=== PATIENT | female | born 1990 | race African-American/Black ===

== ENCOUNTER 2016-07-10 11:31 | Emergency (ER) | payer OTHER ==
[2016-07-07 15:00] VITALS: BP 143/92
[~2016-07-10 11:31] MED LIST: AMLO10TA2 PO; AMOX1TAB61 PO; HYDR12.53 PO; LABE100T3 PO
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
[2016-07-10 12:53] LABS: BASO # 0.1 x10^3/uL (0.0-0.2); BASO % 1 % (0-3); EOS % 1 % (0-3); HEMATOCRIT 39.1 % (36.0-47.0); HEMOGLOBIN 12.9 g/dL (12.0-15.5); LYMPH # 2.3 x10^3/uL (1.0-4.8); LYMPH % 33 % (24-48); MEAN CORPUSCULAR HEMOGLOBIN 29 pg (25-35); MEAN CORPUSCULAR HGB CONC 33 g/dL (31-37); MEAN CORPUSCULAR VOLUME 89 fL (79-100); MONO % 5 % (0-9); NEUT % 60 % (31-73); PLATELET COUNT 223 x10^3/uL (140-400); WHITE BLOOD COUNT 6.9 x10^3/uL (4.0-11.0)
[2016-07-10 12:59] LABS: BILIRUBIN,URINE NEGATIVE (NEG); GLUCOSE,URINE NEGATIVE (NEG); NITRITE,URINE NEGATIVE (NEG); PH,URINE 6.5; PROTEIN,URINE NEGATIVE (NEG-TRACE); UROBILINOGEN,URINE 0.2 mg/dL (0.2 mg/dL)
[2016-07-10 13:03] LABS: BARBITURATES NEG (NEG); BENZODIAZEPINES POS (NEG); CANNABINOIDS NEG (NEG); COCAINE POS (NEG); METHADONE NEG (NEG); OPIATES NEG (NEG); PHENCYCLIDINE POS (NEG)
[2016-07-10 13:09] LABS: NEG OBC UR NEG; POS OBC UR POS
[2016-07-10 13:11] LABS: ALBUMIN 3.3 g/dL (3.4-5.0); ALBUMIN/GLOBULIN RATIO 0.8 (1.0-1.7); CALCIUM 8.6 mg/dL (8.5-10.1); CREATININE 0.7 mg/dL (0.6-1.0); GFR 120.6; TOTAL BILIRUBIN 0.2 mg/dL (0.2-1.0); TOTAL PROTEIN 7.2 g/dL (6.4-8.2)
[2016-07-10] MEDS ORDERED: IV NORMAL SALINE 1000ML BAG 1,000 ML IV ONE (13:15)
[2016-07-10 13:27] LABS: BACTERIA,URINE 0 /HPF (0-FEW); SQUAMOUS EPITHELIAL CELL,UR MANY /LPF; WBC,URINE 0 /HPF (0-4)
[2016-07-10] MEDS: POTASSIUM CHLORIDE 20 MEQ TABLET.ER. PO ONE (14:36)
== END 2016-07-10 14:30 | disposition home or self-care (01) ==
LOC: ER 11:31
DX: O99.341 Other mental disorders complicating pregnancy, first trimester (principal); F14.10 Cocaine abuse, uncomplicated; F19.10 Other psychoactive substance abuse, uncomplicated; I10 Essential (primary) hypertension; E87.6 Hypokalemia
CPT/HCPCS: 36415; 80053; 80305; 80320; 81001; 81025; 83690; 85027; G0480; G0481; 99284-25

== ENCOUNTER 2016-08-09 09:25 | Inpatient (IN) | payer SELFPAY ==
[~2016-08-09] VITALS: Ht 175.3 cm; Wt 91.2 kg
[2016-08-09] VITALS (7 sets, daily range): BP systolic 153–185; BP diastolic 81–115
[2016-08-09 10:00] LABS: BASO # 0.1 x10^3/uL (0.0-0.2); BASO % 1 % (0-3); EOS % 1 % (0-3); HEMATOCRIT 37.9 % (36.0-47.0); HEMOGLOBIN 12.4 g/dL (12.0-15.5); LYMPH # 2.6 x10^3/uL (1.0-4.8); LYMPH % 24 % (24-48); MEAN CORPUSCULAR HEMOGLOBIN 29 pg (25-35); MEAN CORPUSCULAR HGB CONC 33 g/dL (31-37); MEAN CORPUSCULAR VOLUME 88 fL (79-100); MONO % 5 % (0-9); NEUT % 70 % (31-73); PLATELET COUNT 217 x10^3/uL (140-400); RED CELL DISTRIBUTION WIDTH 13.7 % (11.5-14.5); WHITE BLOOD COUNT 11.2 x10^3/uL (4.0-11.0)
[2016-08-09] MEDS ORDERED: METOCLOPRAMIDE HCL 10 MG/2 ML VIAL. IV ONE (10:00)
[2016-08-09] MEDS ORDERED: LABETALOL 20 MG/4 ML DISP.SYRIN. IVP ONE ×2 (10:00→12:45)
[2016-08-09 10:03] LABS: CALCIUM 8.5 mg/dL (8.5-10.1); CREATININE 0.6 mg/dL (0.6-1.0); POTASSIUM 3.6 mmol/L (3.5-5.1)
[2016-08-09] MEDS: fentaNYL PF VIAL 100 MCG/2 ML VIAL IV PRN ×3 (10:03→16:57)
[2016-08-09 10:11] LABS: ALBUMIN 3.1 g/dL (3.4-5.0); ALBUMIN/GLOBULIN RATIO 0.8 (1.0-1.7); TOTAL BILIRUBIN 0.1 mg/dL (0.2-1.0); TOTAL PROTEIN 6.8 g/dL (6.4-8.2)
[2016-08-09 10:22] LABS: PROTHROMBIN TIME PATIENT 12.7 SEC (11.7-14.0)
[2016-08-09 10:44] LABS: BILIRUBIN,URINE NEGATIVE (NEG); GLUCOSE,URINE NEGATIVE (NEG); NITRITE,URINE NEGATIVE (NEG); PH,URINE 7.5; PROTEIN,URINE NEGATIVE (NEG-TRACE); UROBILINOGEN,URINE 0.2 mg/dL (0.2 mg/dL)
[2016-08-09 10:56] LABS: BACTERIA,URINE 0 /HPF (0-FEW); RBC,URINE 0 /HPF (0-2); WBC,URINE 0 /HPF (0-4)
--- NOTE | 2016-08-09 11:20 | RAD ---
EXAM: CT head without contrast. HISTORY: Severe headache, hypertension. TECHNIQUE: Computed tomography of the head was performed without intravenous contrast. The patient was shielded given . COMPARISON: 08/01/2014. FINDINGS: There is no intracranial hemorrhage. Cantor-white differentiation is preserved. The ventricles are normal in size and position. There is a small air-fluid level in the right maxillary sinus. There is mucosal thickening in the right greater than left ethmoid air cells. The orbits are unremarkable. The temporal bones are unremarkable. The calvarium reveals no suspicious lesions. IMPRESSION: 1. No acute intracranial findings. 2. Acute on chronic right maxillary and ethmoid sinus disease. *One or more of the following individualized dose reduction techniques were utilized for this examination: 1. Automated exposure control. 2. Adjustment of the mA and/or kV according to patient size. 3. Use of iterative reconstruction technique.
--- NOTE | 2016-08-09 11:23 | RAD ---
EXAM: Obstetric ultrasound. HISTORY: Severe hypertension and . COMPARISON: None. FINDINGS: Sonographic evaluation of the female pelvis and fetus was performed transabdominally. There is a single fetus in vertex presentation. Estimated gestational age based on measurements is 12 weeks 0 days. heart rate is 147 bpm. The placenta is anterior. Amniotic fluid volume appears normal. The cervix appears closed and measures 5.2 cm. The right ovary measures 4.7 x 2.5 x 2.2 cm. The left measures 4.2 x 3.0 x 1.9 cm. There is normal flow bilaterally. IMPRESSION: 1. Single fetus in vertex presentation. Estimated gestational age based on measurements 12 weeks 0 days. heart rate 147 bpm.
--- NOTE | 2016-08-09 12:16 | EKG ---
[facility] [address] [place] [address] Test Date: 2016-08-09 Test Time: 10:05:07 Pat Name: ANJALI TERRY Department: Room: 262 1 Gender: F Functional Support Analyst: : 1990 Requested By: NOE ELLIOTT Order Number: [id number] Reading MD: James Childress Measurements Intervals Novelty Rate: 81 P: -11 OR: 162 QRS: 39 QRSD: 98 T: 26 QT: 384 QTc: 447 Interpretive Statements SINUS RHYTHM QRS(T) CONTOUR ABNORMALITY CONSIDER ANTEROSEPTAL MYOCARDIAL DAMAGE POSSIBLY ABNORMAL ECG RI6.01 Compared to ECG 07/07/2016 03:55:14 No significant changes Electronically Signed On 08-11-2016 10:52:46 CDT by James Childress
[2016-08-09] MEDS ORDERED: fentaNYL PF VIAL 100 MCG/2 ML VIAL IV PRN (12:45)
[2016-08-09] MEDS ORDERED: ONDANSETRON PF 4 MG/2 ML VIAL. IV PRN (12:45)
[2016-08-09] MEDS ORDERED: LABETALOL 20 MG/4 ML DISP.SYRIN. IVP PRN ×2 (12:45→14:15)
--- NOTE | 2016-08-09 13:22 | PHYS DOC ---
Past Medical History Past Medical History: Hypertension, Migraines Additional Past Medical Histor: Previous "cutting" that pt reports no treatment for; preeclampsia Past Surgical History: Appendectomy Alcohol Use: None Drug Use: Marijuana Social History Narrative: denies 08/09/16 Adult General Chief Complaint Chief Complaint: HEADACHE HPI HPI Patient is a 26 year old female who presents with headache & hypertension. The patient reports she woke from sleep this morning with frontal headache. She states she has had URI symptoms for a week and is not allowed to return to work. She reports nasal congestion, rhinorrhea, sore throat, dry cough. She states the headache started this morning and is associated with photophobia and phonophobia. She denies chest pain, shortness of breath, lower extremity pain or swelling, extremity numbness or weakness. She has history of hypertension. Has been taking her mother's amlodipine because her blood pressure has been running high & she doesn't have her own medication at this time. She is 12 weeks , unknown LMP & EDC, denies abdominal pain, vaginal bleeding, loss of fluid. She was admitted to the hospital in 06/2016 for similar symptoms , did not fill or take labetalol. She has had preeclampsia during previous pregnancies. Does not have established care with an [facility] but Dr. Jones consulted during previous hospital admission. Review of Systems Review of Systems Constitutional: Denies fever or chills Eyes: Denies change in visual acuity HENT: Denies nasal congestion or sore throat Respiratory: Denies cough or shortness of breath Cardiovascular: Denies chest pain or edema GI: Denies abdominal pain, nausea, vomiting, or diarrhea : Denies dysuria or hematuria Musculoskeletal: Denies back pain or joint pain Integument: Denies rash or skin lesions Neurologic: Reports headache, denies focal weakness or sensory changes Current Medications Current Medications Current Medications Medications (Trade) Dose Ordered Sig/Gladys Start Time Stop Time Status Last Admin Dose Admin Fentanyl Citrate (Fentanyl 2ml Vial) 50 mcg PRN Q15MIN PRN 08/09/16 10:00 08/10/16 09:59 08/09/16 12:38 50 MCG Labetalol HCl (Normodyne) 10 mg 1X ONCE 08/09/16 10:00 08/09/16 10:01 DC 08/09/16 10:06 10 MG Metoclopramide HCl (Reglan) 10 mg 1X ONCE 08/09/16 10:00 08/09/16 10:01 DC 08/09/16 10:02 10 MG Allergies Allergies Allergies Coded Allergies Type Severity Reaction Last Updated Verified No Known Drug Allergies 04/19/15 No Physical Exam Physical Exam Constitutional: Well developed, well nourished, no acute distress, non-toxic appearance. HENT: Normocephalic, atraumatic, bilateral external ears normal, oropharynx moist, nose normal. Eyes: PERRLA, EOMI, no papilledema, conjunctiva normal, no discharge. Neck: supple, no stridor. no nuchal rigidity. Cardiovascular: RRR, no murmurs, no edema. Lungs & Thorax: LCTAB, no wheezing, no respiratory distress. Abdomen: soft, nontender, nondistended. Skin: Warm, dry, no erythema, no rash. Back: No tenderness. Extremities: No tenderness, no edema. no calf tenderness or swelling. Neurologic: Alert and oriented X 3, CN2-12 grossly intact, symmetric strength/ sensation to UE & LE, no focal deficits noted. Psychologic: Affect normal, judgement normal, mood normal. Current Patient Data Vital Signs Vital Signs Date Time Temp Pulse Resp B/P (MAP) Pulse Ox O2 Delivery O2 Flow Rate FiO2 08/09/16 11:02 84 20 167/97 (120) 97 08/09/16 10:35 Room Air 08/09/16 09:27 98.3 98.3 Lab Values Laboratory Tests Test 08/09/16 09:37 08/09/16 10:27 White Blood Count 11.2 x10^3/uL (4.0-11.0) H Red Blood Count 4.30 x10^6/uL (3.50-5.40) Hemoglobin 12.4 g/dL (12.0-15.5) Hematocrit 37.9 % (36.0-47.0) Mean Corpuscular Volume 88 fL (79-100) Mean Corpuscular Hemoglobin 29 pg (25-35) Mean Corpuscular Hemoglobin Concent 33 g/dL (31-37) Red Cell Distribution Width 13.7 % (11.5-14.5) Platelet Count 217 x10^3/uL (140-400) Neutrophils (%) (Auto) 70 % (31-73) Lymphocytes (%) (Auto) 24 % (24-48) Monocytes (%) (Auto) 5 % (0-9) Eosinophils (%) (Auto) 1 % (0-3) Basophils (%) (Auto) 1 % (0-3) Neutrophils # (Auto) 7.8 x10^3uL (1.8-7.7) H Lymphocytes # (Auto) 2.6 x10^3/uL (1.0-4.8) Monocytes # (Auto) 0.5 x10^3/uL (0.0-1.1) Eosinophils # (Auto) 0.1 x10^3/uL (0.0-0.7) Basophils # (Auto) 0.1 x10^3/uL (0.0-0.2) Prothrombin Time 12.7 SEC (11.7-14.0) Prothrombin Time INR 1.0 (0.8-1.1) PTT 29 SEC (24-38) Sodium Level 142 mmol/L (136-145) Potassium Level 3.6 mmol/L (3.5-5.1) Chloride Level 105 mmol/L (98-107) Carbon Dioxide Level 26 mmol/L (21-32) Anion Gap 11 (6-14) Blood Urea Nitrogen 7 mg/dL (7-20) Creatinine 0.6 mg/dL (0.6-1.0) Estimated GFR (Cockcroft-Gault) 144.0 BUN/Creatinine Ratio 12 (6-20) Glucose Level 75 mg/dL (70-99) Calcium Level 8.5 mg/dL (8.5-10.1) Total Bilirubin 0.1 mg/dL (0.2-1.0) L Aspartate Amino Transferase (AST) 22 U/L (15-37) Alanine Aminotransferase (ALT) 30 U/L (14-59) Alkaline Phosphatase 67 U/L (46-116) Troponin I Quantitative < 0.017 ng/mL (0.000-0.055) XP-Egh-H-Type Natriuretic Peptide 174 pg/mL (0-124) H Total Protein 6.8 g/dL (6.4-8.2) Albumin 3.1 g/dL (3.4-5.0) L Albumin/Globulin Ratio 0.8 (1.0-1.7) L Urine Collection Type Unknown Urine Color Yellow Urine Clarity Turbid Urine pH 7.5 Urine Specific [place] 1.015 Urine Protein Negative mg/dL (NEG-TRACE) Urine Glucose (UA) Negative mg/dL (NEG) Urine Ketones (Stick) Negative mg/dL (NEG) Urine Blood Negative (NEG) Urine Nitrite Negative (NEG) Urine Bilirubin Negative (NEG) Urine Urobilinogen Dipstick 0.2 mg/dL (0.2 mg/dL) Urine Leukocyte Esterase Negative (NEG) Urine RBC 0 /HPF (0-2) Urine WBC 0 /HPF (0-4) Urine Bacteria 0 /HPF (0-FEW) Laboratory Tests 08/09/16 09:37 Laboratory Tests 08/09/16 09:37 EKG EKG interpreted by me: Normal sinus rhythm rate 1, no acute ST or T wave changes, normal intervals, no ectopy. [] Radiology/Procedures Radiology/Procedures PROCEDURE: CT HEAD WO CONTRAST EXAM: CT head without contrast. HISTORY: Severe headache, hypertension. TECHNIQUE: Computed tomography of the head was performed without intravenous contrast. The patient was shielded given . COMPARISON: 08/01/2014. FINDINGS: There is no intracranial hemorrhage. Cantor-white differentiation is preserved. The ventricles are normal in size and position. There is a small air-fluid level in the right maxillary sinus. There is mucosal thickening in the right greater than left ethmoid air cells. The orbits are unremarkable. The temporal bones are unremarkable. The calvarium reveals no suspicious lesions. IMPRESSION: 1. No acute intracranial findings. 2. Acute on chronic right maxillary and ethmoid sinus disease. *One or more of the following individualized dose reduction techniques were utilized for this examination: 1. Automated exposure control. 2. Adjustment of the mA and/or kV according to patient size. 3. Use of iterative reconstruction technique. DICTATED and SIGNED BY: AURA DAIGLE MD DATE: 08/09/16 1115 PROCEDURE: OB < 14 WKS EXAM: Obstetric ultrasound. HISTORY: Severe hypertension and . COMPARISON: None. FINDINGS: Sonographic evaluation of the female pelvis and fetus was performed transabdominally. There is a single fetus in vertex presentation. Estimated gestational age based on measurements is 12 weeks 0 days. heart rate is 147 bpm. The placenta is anterior. Amniotic fluid volume appears normal. The cervix appears closed and measures 5.2 cm. The right ovary measures 4.7 x 2.5 x 2.2 cm. The left measures 4.2 x 3.0 x 1.9 cm. There is normal flow bilaterally. IMPRESSION: 1. Single fetus in vertex presentation. Estimated gestational age based on measurements 12 weeks 0 days. heart rate 147 bpm. DICTATED and SIGNED BY: AURA DAIGLE MD DATE: 08/09/16 1119[] Course & Med Decision Making Course & Med Decision Making Pertinent Labs and Imaging studies reviewed. (See chart for details) The patient presents with headache and severe hypertension, blood pressure elevated to 200s over 120s. No focal neurologic deficit present. She is in the first trimester, likely exacerbation of chronic hypertension rather than preeclampsia. She does have severe headache with blood pressure. We had a discussion about risks versus benefits. I did recommend imaging as risk to patient and her baby is greater if she has severe intracranial injury. This was unremarkable for any acute process. She was given labetalol for blood pressure which she is supposed to be taking chronically. Labs as above, no proteinuria, elevated LFTs, low platelets. Her blood pressure improved slightly. I did recommend admission to the hospital for further evaluation and management. She agrees with plan of care. Discussed with Dr. gomez who agrees to admit to inpatient status. OB consult to Dr. Jones. The patient is being admitted in stable condition. [] Dragon Disclaimer Dragon Disclaimer This electronic medical record was generated, in whole or in part, using a voice recognition dictation system. Departure Departure Impression: Primary Impression: Severe hypertension Additional Impressions: Headache First trimester Disposition: ADMITTED INPATIENT Admitting Physician: Ilene Gomez Condition: STABLE Referrals: NO PCP (PCP) Problem Qualifiers Additional Impressions: Headache Headache type: unspecified Headache chronicity pattern: unspecified pattern Intractability: not intractable Qualified Codes: R51 - Headache NOE ELLIOTT MD Aug 09, 2016 13:22
[2016-08-09] MEDS: hydrALAZINE 20 MG/ML VIAL. IVP PRN ×3 (14:15→20:01)
--- NOTE | 2016-08-09 16:46 | PDOC1 ---
History and Physical Date of Admission Date of Admission DATE: 08/09/16 TIME: 16:43 Identification/Chief Complaint Chief Complaint Headache Problems: Source Source: Chart review, Patient History of Present Illness History of Present Illness Ms. Avery, is a 26 year old female admit for new headache & hypertension. 12 week , has not filled her HTN meds This AM, new severe frontal headache. Recent UTI sx, cough, MICHEL, she is worried she has the flu,. nasal congestion and runny nose, no myalgia, no fever pain of MICHEL 7/10 no OB care started, has not taken vitamins Past Medical History Cardiovascular: HTN Rheumatologic: No pertinent hx Infectious disease: No pertinent hx Renal/: No pertinent hx Endocrine: No pertinent hx Past Surgical History Past Surgical History: Appendectomy Family History Family History: Hypertension Social History ALCOHOL: occassional Drugs: Marijuana, Ecstasy Current Problem List Problem List Problems Medical Problems: (1) First trimester Status: Acute (2) Headache Status: Acute (3) Severe hypertension Status: Acute Problems: Current Medications Current Medications Current Medications Metoclopramide HCl (Reglan) 10 mg 1X ONCE IV Last administered on 08/09/16 10 :02; Start 08/09/16 at 10:00; Stop 08/09/16 at 10:01; Status DC Fentanyl Citrate (Fentanyl 2ml Vial) 50 mcg PRN Q15MIN PRN IV PAIN GREATER THAN 3/10 Last administered on 08/09/16 12:38; Start 08/09/16 at 10:00; Stop at 09:59 Labetalol HCl (Normodyne) 10 mg 1X ONCE IVP Last administered on 08/09/16 10: 06; Start 08/09/16 at 10:00; Stop 08/09/16 at 10:01; Status DC Labetalol HCl (Normodyne) 10 mg 1X ONCE IVP Last administered on 08/09/16 12: 41; Start 08/09/16 at 12:45; Stop 08/09/16 at 12:46; Status DC Ondansetron HCl (Zofran) 4 mg PRN Q8HRS PRN IV NAUSEA/VOMITING; Start 08/09/16 at 12:45; Stop 08/10/16 at 12:44 Fentanyl Citrate (Fentanyl 2ml Vial) 50 mcg PRN Q2HR PRN IV PAIN; Start at 12:45; Stop 08/10/16 at 12:44 Acetaminophen (Tylenol) 650 mg PRN Q4HRS PRN PO FEVER; Start 08/09/16 at 12:45 ; Stop 08/10/16 at 12:44 Labetalol HCl (Normodyne) 10 mg PRN Q2HR PRN IVP HYPERTENSION, SEE COMMENTS; Start 08/09/16 at 12:45; Stop 08/09/16 at 14:09; Status DC Hydralazine HCl (Apresoline) 10 mg PRN Q20MIN PRN IVP ELEVATED BP, SEE COMMENTS Last administered on 08/09/16t 14:15; Start 08/09/16 at 14:15 Labetalol HCl (Normodyne) 20 mg PRN Q20MIN PRN IVP HYPERTENSION, SEE COMMENTS; Start 08/09/16 at 14:15 Nifedipine (Procardia Xl) 60 mg DAILY PO Last administered on 08/09/16t 14:15; Start 08/09/16 at 15:00 Active Scripts Active Labetalol Hcl 100 Mg Tablet 200 Mg PO BID Reported Amlodipine Besylate 10 Mg Tablet 10 Mg PO DAILY Allergies Allergies: Coded Allergies: No Known Drug Allergies (Unverified , 04/19/15) ROS General: No: Chills, Night Sweats, Fatigue, Malaise, Appetite, Other PSYCHOLOGICAL ROS: No: Anxiety, Behavioral Disorder, Concentration difficultie , Decreased libido, Depression, Disorientation, Hallucinations, Hostility, Irritablity, Memory difficulties, Mood Swings, Obsessive thoughts, Physical abuse, Sexual abuse, Sleep disturbances, Suicidal ideation, Other Eyes: No Blurry vision, No Decreased vision, No Double vision, No Dry eyes, No Excessive tearing, No Eye Pain, No Itchy Eyes, No Loss of vision, No Photophobia , No Scotomata, No Uses contacts, No Uses glasses, No Other HEENT: YES: Heacaches, No: Visual Changes, Hearing change, Nasal congestion, Nasal discharge, Oral lesions, Sore Throat, Epistaxis, Sneezing, Snoring, Tinnitus, Vertigo, Vocal changes, Other Respiratory: YES: Cough, No: Hemoptysis, Orthopnea, Pleuritic Pain, Shortness of breath, SOB with excertion, Sputum Changes, Stridor, Tachypnea, Wheezing, Other Cardiovascular: No Chest Pain, No Palpitations, No Orthopnea, No Paroxysmal Noc. Dyspnea, No Edema, No Lt Headedness, No Other Gastrointestinal: No Nausea, No Vomiting, No Abdominal Pain, No Diarrhea, No Constipation, No Melena, No Hematochezia, No Other Genitourinary: No Dysuria, No Frequency, No Incontinence, No Hematuria, No Retention, No Discharge, No Urgency, No Pain, No Flank Pain, No Other, No , No , No , No , No , No , No Musculoskeletal: No Gait Disturbance, No Joint Pain, No Joint Stiffness, No Joint Swelling, No Muscle Pain, No Muscular Weakness, No Pain In:, No Swelling In:, No Other Neurological: No Behavorial Changes, No Bowel/Bladder ControlChng, No Confusion , No Dizziness, No Gait Disturbance, No Headaches, No Impaired Coord/balance, No Memory Loss, No Numbness/Tingling, No Seizures, No Speech Problems, No Tremors, No Visual Changes, No Weakness, No Other Skin: No Dry Skin, No Eczema, No Hair Changes, No Lumps, No Mole Changes, No Mottling, No Nail Changes, No Pruritus, No Rash, No Skin Lesion Changes, No Other, No Acne Physical Exam General: Alert, Oriented X3, Cooperative, No acute distress HEENT: EOMI, Mucous membr. moist/pink Lungs: Normal air movement Heart: no gallops, no murmurs Rectal Exam: not examined Extremities: No edema, Normal pulses Neuro: Sensation intact, Cranial nerves 3-12 NL Psych/Mental Status: Mental status NL, Mood NL Vitals Vitals Vital Signs Date Time Temp Pulse Resp B/P (MAP) Pulse Ox O2 Delivery O2 Flow Rate FiO2 08/09/16 14:26 86 157/86 (109) 08/09/16 13:10 Room Air 08/09/16 13:08 18 95 08/09/16 13:06 97.8 97.8 Labs Labs Laboratory Tests Test 08/09/16 09:37 08/09/16 10:27 White Blood Count 11.2 x10^3/uL (4.0-11.0) Red Blood Count 4.30 x10^6/uL (3.50-5.40) Hemoglobin 12.4 g/dL (12.0-15.5) Hematocrit 37.9 % (36.0-47.0) Mean Corpuscular Volume 88 fL (79-100) Mean Corpuscular Hemoglobin 29 pg (25-35) Mean Corpuscular Hemoglobin Concent 33 g/dL (31-37) Red Cell Distribution Width 13.7 % (11.5-14.5) Platelet Count 217 x10^3/uL (140-400) Neutrophils (%) (Auto) 70 % (31-73) Lymphocytes (%) (Auto) 24 % (24-48) Monocytes (%) (Auto) 5 % (0-9) Eosinophils (%) (Auto) 1 % (0-3) Basophils (%) (Auto) 1 % (0-3) Neutrophils # (Auto) 7.8 x10^3uL (1.8-7.7) Lymphocytes # (Auto) 2.6 x10^3/uL (1.0-4.8) Monocytes # (Auto) 0.5 x10^3/uL (0.0-1.1) Eosinophils # (Auto) 0.1 x10^3/uL (0.0-0.7) Basophils # (Auto) 0.1 x10^3/uL (0.0-0.2) Prothrombin Time 12.7 SEC (11.7-14.0) Prothromb Time International Ratio 1.0 (0.8-1.1) Activated Partial Thromboplast Time 29 SEC (24-38) Sodium Level 142 mmol/L (136-145) Potassium Level 3.6 mmol/L (3.5-5.1) Chloride Level 105 mmol/L (98-107) Carbon Dioxide Level 26 mmol/L (21-32) Anion Gap 11 (6-14) Blood Urea Nitrogen 7 mg/dL (7-20) Creatinine 0.6 mg/dL (0.6-1.0) Estimated GFR (Cockcroft-Gault) 144.0 BUN/Creatinine Ratio 12 (6-20) Glucose Level 75 mg/dL (70-99) Calcium Level 8.5 mg/dL (8.5-10.1) Total Bilirubin 0.1 mg/dL (0.2-1.0) Aspartate Amino Transf (AST/SGOT) 22 U/L (15-37) Alanine Aminotransferase (ALT/SGPT) 30 U/L (14-59) Alkaline Phosphatase 67 U/L (46-116) Troponin I Quantitative < 0.017 ng/mL (0.000-0.055) SE-Drk-R-Type Natriuretic Peptide 174 pg/mL (0-124) Total Protein 6.8 g/dL (6.4-8.2) Albumin 3.1 g/dL (3.4-5.0) Albumin/Globulin Ratio 0.8 (1.0-1.7) Urine Collection Type Unknown Urine Color Yellow Urine Clarity Turbid Urine pH 7.5 Urine Specific [place] 1.015 Urine Protein Negative mg/dL (NEG-TRACE) Urine Glucose (UA) Negative mg/dL (NEG) Urine Ketones (Stick) Negative mg/dL (NEG) Urine Blood Negative (NEG) Urine Nitrite Negative (NEG) Urine Bilirubin Negative (NEG) Urine Urobilinogen Dipstick 0.2 mg/dL (0.2 mg/dL) Urine Leukocyte Esterase Negative (NEG) Urine RBC 0 /HPF (0-2) Urine WBC 0 /HPF (0-4) Urine Bacteria 0 /HPF (0-FEW) Laboratory Tests Test 08/09/16 09:37 08/09/16 10:27 White Blood Count 11.2 x10^3/uL (4.0-11.0) Red Blood Count 4.30 x10^6/uL (3.50-5.40) Hemoglobin 12.4 g/dL (12.0-15.5) Hematocrit 37.9 % (36.0-47.0) Mean Corpuscular Volume 88 fL (79-100) Mean Corpuscular Hemoglobin 29 pg (25-35) Mean Corpuscular Hemoglobin Concent 33 g/dL (31-37) Red Cell Distribution Width 13.7 % (11.5-14.5) Platelet Count 217 x10^3/uL (140-400) Neutrophils (%) (Auto) 70 % (31-73) Lymphocytes (%) (Auto) 24 % (24-48) Monocytes (%) (Auto) 5 % (0-9) Eosinophils (%) (Auto) 1 % (0-3) Basophils (%) (Auto) 1 % (0-3) Neutrophils # (Auto) 7.8 x10^3uL (1.8-7.7) Lymphocytes # (Auto) 2.6 x10^3/uL (1.0-4.8) Monocytes # (Auto) 0.5 x10^3/uL (0.0-1.1) Eosinophils # (Auto) 0.1 x10^3/uL (0.0-0.7) Basophils # (Auto) 0.1 x10^3/uL (0.0-0.2) Prothrombin Time 12.7 SEC (11.7-14.0) Prothromb Time International Ratio 1.0 (0.8-1.1) Activated Partial Thromboplast Time 29 SEC (24-38) Sodium Level 142 mmol/L (136-145) Potassium Level 3.6 mmol/L (3.5-5.1) Chloride Level 105 mmol/L (98-107) Carbon Dioxide Level 26 mmol/L (21-32) Anion Gap 11 (6-14) Blood Urea Nitrogen 7 mg/dL (7-20) Creatinine 0.6 mg/dL (0.6-1.0) Estimated GFR (Cockcroft-Gault) 144.0 BUN/Creatinine Ratio 12 (6-20) Glucose Level 75 mg/dL (70-99) Calcium Level 8.5 mg/dL (8.5-10.1) Total Bilirubin 0.1 mg/dL (0.2-1.0) Aspartate Amino Transf (AST/SGOT) 22 U/L (15-37) Alanine Aminotransferase (ALT/SGPT) 30 U/L (14-59) Alkaline Phosphatase 67 U/L (46-116) Troponin I Quantitative < 0.017 ng/mL (0.000-0.055) SL-Zjz-A-Type Natriuretic Peptide 174 pg/mL (0-124) Total Protein 6.8 g/dL (6.4-8.2) Albumin 3.1 g/dL (3.4-5.0) Albumin/Globulin Ratio 0.8 (1.0-1.7) Urine Collection Type Unknown Urine Color Yellow Urine Clarity Turbid Urine pH 7.5 Urine Specific [place] 1.015 Urine Protein Negative mg/dL (NEG-TRACE) Urine Glucose (UA) Negative mg/dL (NEG) Urine Ketones (Stick) Negative mg/dL (NEG) Urine Blood Negative (NEG) Urine Nitrite Negative (NEG) Urine Bilirubin Negative (NEG) Urine Urobilinogen Dipstick 0.2 mg/dL (0.2 mg/dL) Urine Leukocyte Esterase Negative (NEG) Urine RBC 0 /HPF (0-2) Urine WBC 0 /HPF (0-4) Urine Bacteria 0 /HPF (0-FEW) VTE Prophylaxis Ordered VTE Prophylaxis Devices: No VTE Pharmacological Prophylaxi: No Assessment/Plan Assessment/Plan htn emergency 12 week preg woman check urine for protein, pre-ecclampsia risk labetolol and nicardipine priro EtOH and drug use documented in last 6 weeks pt requested vitamin try to DC CORETTA Blackwood MD Aug 09, 2016 16:46
[2016-08-09] MEDS: PRENATAL MULTIVITAMIN TABLET. PO SCH (17:00)
[2016-08-09] MEDS ORDERED: POTASSIUM CHLORIDE 20 MEQ TABLET.ER. PO ONE (17:30)
--- NOTE | 2016-08-09 18:53 | ACF ---
Admission Forms Criteria HYPERTENSIVE DISORDERS OF Clinical Indications for Admission to Inpatient Care (Place 'X ' for any and all applicable criteria): Admission is indicated for 1 or more of the following (1)(2)(3)(4)(5)(6)(7): [ ]I. Eclampsia[A](10) [ ]II. Preeclampsia with severe features (ie, severe preeclampsia) indicated by 1 or more of the following[B][C]: [ ]a) Preeclampsia findings present (eg, proteinuria with SBP greater than 140 mmHg or DBP greater than 90 mmHg) [ ]b) Severe signs or symptoms as indicated by ANY ONE of the following : [ ]i) SBP greater than or equal to 160 mm Hg or DBP greater than or equal to 110 mm Hg on 2 occasions at least 4 hours apart while the patient is at bed rest (UNLESS antihypertensive therapy is initiated before this time)(5) [ ]ii) Platelet count less than 100,000/mm3 (100 x109/L) [ ]iii) Impaired liver function as indicated by 1 or more of the following: [ ]a) Elevation of liver enzymes (eg, SGOT, SGPT) to twice normal concentration [ ]b) Severe persistent right upper quadrant or epigastric pain unresponsive to medication and not accounted for by alternative diagnosis [ ]iv) Progressive renal insufficiency indicated by 1 or more of the following: [ ]a) Serum creatinine concentration greater than 1.1 mg/dL (97 micromoles/L) [ ]b) Doubling (from baseline) of serum creatinine concentration in the absence of other renal disease [ ]v) Pulmonary edema [ ]vi) Cerebral or visual symptoms (eg, headache, Altered mental status, changes in vision) [ ]III. Delivery planned due to nonsevere preeclampsia as indicated by ALL of the following: [ ]i) Nonsevere preeclampsia present as indicated by ALL of the following: [ ]a) Woman at 20 or more weeks' gestation [ ]b) New-onset SBP greater than or equal to 140 mm Hg but less than 160 mm Hg or DBP greater than or equal to 90 mm Hg but less than 110 mm Hg on 2 occasions at least 4 hours apart [ ]c) Proteinuria present as indicated by 1 or more of the following: [ ]i) Urinary protein excretion greater than or equal to 300 mg per 24-hour collection (or this amount extrapolated from a shorter timed collection) [ ]ii) Protein/creatinine ratio greater than or equal to 0.3 (measured in mg/dL) [ ]ii) Delivery indicated due to 1 or more of the following: [ ]a) Gestational age of 37 0/7 weeks or more [ ]b) Gestational age of 34 0/7 weeks to 36 6/7 weeks and 1 or more of the following: [ ]i) Progressive labor or rupture of membranes [ ]ii) Abnormal biophysical profile [ ]iii) Suspected abruptio placentae [ ]iv) Ultrasound estimate of weight less than 5th percentile [ ]v) Other indication for delivery [ ]IV. Delivery planned due to gestational hypertension[D] because of 1 or more of the following: [ ]i) Delivery indicated because gestational age of 37 0/ 7 weeks or more has been reached [ ]ii) Gestational age of 34 0/7 weeks to 36 6/7 weeks for which delivery is indicated because of 1 or more of the following: [ ]a) Progressive labor or rupture of membranes [ ]b) Abnormal biophysical profile [ ]c) Suspected abruptio placentae [ ]d) Ultrasound estimate of weight less than 5th percentile [ ]e) Other indication for delivery [ ]V. Hypertension of any category[E] during with acute end organ damage as indicated by 1 or more of the following: [ ]a) Hypertensive encephalopathy (eg, Altered mental status that is severe or persistent )(13) [ ]b) Cerebral infarction [ ]c) Intracerebral hemorrhage [ ]d) Myocardial infarction [ ]e) Pulmonary edema [ ]f) Aortic dissection [ ]g) Seizures [ ]h) Papilledema [ ]i) Microangiopathic hemolytic anemia [ ]j) Visual loss [ ]k) Acute renal failure [ ]. Hypertension during pregnancywith evidence of compromise as indicated by 1 or more of the following: [ ]a) Abnormal heart tones [ ]b) Abnormal stress test [ ]c) Abnormal biophysical profile [X ]VII. patient requires inpatient control of blood pressure indicated by (see Hypertensive Disorders of : Observation Care ISC guideline as appropriate) ALL of the following: [X ]a) SBP is greater than or equal to 160 mm Hg or DBP is greater than or equal to 105 mm Hg [X ]b) Blood pressure cannot be reduced below these levels with outpatient or observation care treatment (eg, oral medications not effective) Extended stay beyond goal length of stay may be needed for(1)(2)(12)(27) : [ ]a) Eclampsia [ ]b) Ongoing compromise [ ]c) Complications of hypertensive disorders of [ ]d) Active comorbidities (eg, heart failure, poorly controlled diabetes, renal insufficiency) (31) [ ]e) Persistent hypertension [ ]f) Delivery planned The original [facility] [employer] content created by [employer] has been revised. The portions of the content which have been revised are identified through the use of italic text, and [facility] has neither reviewed nor approved the modified material. All other unmodified content is copyright [facility] Please see references footnoted in the original [facility] edition 2015. Admission Criteria Met?: Yes ANGEL WELCH Aug 09, 2016 18:53
[2016-08-09] MEDS: ACETAMINOPHEN 325 MG TABLET. PO PRN (20:02)
[2016-08-10] MEDS: ACETAMINOPHEN 325 MG TABLET. PO PRN ×2 (03:15→08:34)
[2016-08-10 03:23] VITALS: BP 139/74
[2016-08-10 04:21] LABS: BASO # 0.1 x10^3/uL (0.0-0.2); BASO % 1 % (0-3); EOS % 0 % (0-3); HEMOGLOBIN 12.7 g/dL (12.0-15.5); LYMPH % 19 % (24-48); MEAN CORPUSCULAR HEMOGLOBIN 29 pg (25-35); MEAN CORPUSCULAR HGB CONC 34 g/dL (31-37); MEAN CORPUSCULAR VOLUME 87 fL (79-100); MONO % 5 % (0-9); NEUT % 75 % (31-73); PLATELET COUNT 231 x10^3/uL (140-400); RED BLOOD COUNT 4.36 x10^6/uL (3.50-5.40); RED CELL DISTRIBUTION WIDTH 13.7 % (11.5-14.5); WHITE BLOOD COUNT 10.7 x10^3/uL (4.0-11.0)
[2016-08-10 04:39] LABS: CALCIUM 8.7 mg/dL (8.5-10.1); CREATININE 0.6 mg/dL (0.6-1.0); POTASSIUM 3.2 mmol/L (3.5-5.1)
[2016-08-10 07:00] VITALS: BP 154/94
[2016-08-10] MEDS: PRENATAL MULTIVITAMIN TABLET. PO SCH (08:34)
[2016-08-10 11:00] VITALS: BP 163/108
--- NOTE | 2016-08-10 14:03 | PDOC ---
Provider Note Provider Note Pt left RAMESH, RAMESH FORMED SIGNED, D/W RN MONICA JEAN SRINIVASA R MD Aug 10, 2016 14:03
== END 2016-08-10 11:20 | disposition left against medical advice (07) | DRG 781 ==
LOC: ER 09:25 → 2 SOUTH 11:04
PROVIDERS: ADMIT Internal Medicine; ATTEND Internal Medicine
DX: O16.1 Unspecified maternal hypertension, first trimester (principal); I16.1 Hypertensive emergency; G43.909 Migraine, unspecified, not intractable, without status migrainosus; O99.511 Diseases of the respiratory system complicating pregnancy, first trimester; Z3A.12 12 weeks gestation of pregnancy; Z82.49 Family history of ischemic heart disease and other diseases of the circulatory system; Z90.49 Acquired absence of other specified parts of digestive tract; Z91.5 Personal history of self-harm
CPT/HCPCS: 36415; 70450; 76801; 80048; 80053; 81001; 83880; 84484; 85027; 85610; 85730; 93005; 96374; 96375; J0360; J2405; J2765; J3010; J3490; 99285-25

== ENCOUNTER 2016-09-27 02:18 | Inpatient (IN) | payer SELFPAY ==
[2016-09-27] VITALS (7 sets, daily range): BP systolic 142–165; BP diastolic 79–111
[~2016-09-27] VITALS: Ht 175.3 cm; Wt 89.9 kg
--- NOTE | 2016-09-27 03:06 | PHYS DOC ---
Past Medical History Past Medical History: Hypertension, Migraines Additional Past Medical Histor: Previous "cutting" that pt reports no treatment for; preeclampsia Past Surgical History: Appendectomy Alcohol Use: None Drug Use: Marijuana, Other Social History Narrative: PCP Adult General Chief Complaint Chief Complaint: ABDOMINAL PAIN HPI HPI Patient is a 26 year old female who presents with abdominal pain and headache. Patient is 19 weeks gestational age with no care presenting to the ED with 2 hours of abdominal pain. Patient denies any vaginal discharge or bleeding. Patient states she has had some associated nausea and vomiting. Patient states her previous 3 pregnancies were uncomplicated and no history of preeclampsia, gestational diabetes, gestational hypertension. Patient denies any fevers. Patient denies any chest pain or shortness of breath. Patient states abdominal pain is generalized with a pinpoint area. Patient denies any dysuria. Patient admits to doing PCP earlier today around 2 PM, and did cocaine 3 days ago. Patient is wanted to go to rehabilitation to quit drugs. Review of Systems Review of Systems GEN: Denies fevers, chills, sweats HEENT: Denies blurred vision, sore throat CV: Denies chest pain RESP: Denies shortness of air, cough GI: Abdominal pain with nausea and vomiting NEURO: Denies confusion, dizziness MSK: Denies weakness, joint pain/swelling Current Medications Current Medications Current Medications Medications (Trade) Dose Ordered Sig/Gladys Start Time Stop Time Status Last Admin Dose Admin Acetaminophen (Tylenol) 1,000 mg 1X ONCE 09/27/16 03:30 09/27/16 03:31 DC 09/27/16 03:14 1,000 MG Dextrose/Sodium Chloride 500 ml @ 500 mls/hr 1X ONCE 09/27/16 03:30 09/27/16 04:29 DC 09/27/16 03:19 500 MLS/HR Ondansetron HCl (Zofran) 4 mg 1X ONCE 09/27/16 03:30 09/27/16 03:31 DC 09/27/16 03:15 4 MG Potassium Chloride (Klor-Con) 40 meq 1X ONCE 09/27/16 04:15 09/27/16 04:16 DC 09/27/16 04:20 40 MEQ Allergies Allergies Allergies Coded Allergies Type Severity Reaction Last Updated Verified No Known Drug Allergies 04/19/15 No Physical Exam Physical Exam GEN.: No apparent distress. Alert and oriented. HEENT: Head is normocephalic, atraumatic NECK: Supple. LUNGS: CTAB. HEART: RRR, S1, S2 present. Peripheral pulses intact ABDOMEN: Soft, nontender. Positive bowel sounds, a gravid uterus EXTREMITIES: Without any cyanosis. NEUROLOGIC: Normal speech, normal tone PSYCHIATRIC: Normal affect, normal mood. SKIN: No ulcerations Current Patient Data Vital Signs Vital Signs Date Time Temp Pulse Resp B/P (MAP) Pulse Ox O2 Delivery O2 Flow Rate FiO2 09/27/16 02:20 99.1 83 16 176/94 (121) 99 Room Air 99.1 Lab Values Laboratory Tests Test 09/27/16 01:36 09/27/16 02:30 09/27/16 02:36 POC Urine HCG, Qualitative Hcg positive (Negative) Urine Collection Type Unknown Urine Color [place] Urine Clarity Clear Urine pH 6.0 Urine Specific [place] >=1.030 Urine Protein 100 mg/dL (NEG-TRACE) Urine Glucose (UA) Negative mg/dL (NEG) Urine Ketones (Stick) >=80 mg/dL (NEG) Urine Blood Negative (NEG) Urine Nitrite Negative (NEG) Urine Bilirubin Negative (NEG) Urine Urobilinogen Dipstick 0.2 mg/dL (0.2 mg/dL) Urine Leukocyte Esterase Negative (NEG) Urine RBC 0 /HPF (0-2) Urine WBC Occ /HPF (0-4) Urine Squamous Epithelial Cells Mod /LPF Urine Bacteria Few /HPF (0-FEW) Urine Mucus Mod /LPF White Blood Count 8.6 x10^3/uL (4.0-11.0) Red Blood Count 4.02 x10^6/uL (3.50-5.40) Hemoglobin 11.9 g/dL (12.0-15.5) L Hematocrit 35.2 % (36.0-47.0) L Mean Corpuscular Volume 88 fL (79-100) Mean Corpuscular Hemoglobin 30 pg (25-35) Mean Corpuscular Hemoglobin Concent 34 g/dL (31-37) Red Cell Distribution Width 13.5 % (11.5-14.5) Platelet Count 217 x10^3/uL (140-400) Neutrophils (%) (Auto) 78 % (31-73) H Lymphocytes (%) (Auto) 17 % (24-48) L Monocytes (%) (Auto) 4 % (0-9) Eosinophils (%) (Auto) 1 % (0-3) Basophils (%) (Auto) 0 % (0-3) Neutrophils # (Auto) 6.6 x10^3uL (1.8-7.7) Lymphocytes # (Auto) 1.5 x10^3/uL (1.0-4.8) Monocytes # (Auto) 0.3 x10^3/uL (0.0-1.1) Eosinophils # (Auto) 0.1 x10^3/uL (0.0-0.7) Basophils # (Auto) 0.0 x10^3/uL (0.0-0.2) Sodium Level 139 mmol/L (136-145) Potassium Level 2.9 mmol/L (3.5-5.1) *L Chloride Level 101 mmol/L (98-107) Carbon Dioxide Level 27 mmol/L (21-32) Anion Gap 11 (6-14) Blood Urea Nitrogen 8 mg/dL (7-20) Creatinine 0.8 mg/dL (0.6-1.0) Estimated GFR (Cockcroft-Gault) 103.3 BUN/Creatinine Ratio 10 (6-20) Glucose Level 86 mg/dL (70-99) Calcium Level 8.6 mg/dL (8.5-10.1) Total Bilirubin 0.6 mg/dL (0.2-1.0) Aspartate Amino Transferase (AST) 17 U/L (15-37) Alanine Aminotransferase (ALT) 22 U/L (14-59) Alkaline Phosphatase 60 U/L (46-116) Total Protein 7.4 g/dL (6.4-8.2) Albumin 3.4 g/dL (3.4-5.0) Albumin/Globulin Ratio 0.9 (1.0-1.7) L Laboratory Tests 09/27/16 02:36 Laboratory Tests 09/27/16 02:36 EKG EKG 0343: EKG shows normal sinus rhythm rate of 75 no STEMI [] Radiology/Procedures Radiology/Procedures heart tones done at bedside were 201 [] Course & Med Decision Making Course & Med Decision Making Pertinent Labs and Imaging studies reviewed. (See chart for details) ED course: Patient was seen and examined emergency room CBC, CMP, UA were ordered along with D5 1 liter normal saline and for Zofran 0400: PAT team called 0422: Discussed CC/HP/PMH with Dr. Salinas and recommends admit to medicine with [employer] on consult like an official ultrasound 0425: Discussed CC/HP/PMH with Dr. Gomez and recommends admit [] MDM: After reviewing the chart, CC/HPI/PMH, physical exam, [lab results], [ radiological results], I have concerns the patient has preeclampsia with elevated blood pressures and possible hyperemesis gravidarum with nausea vomiting and hypokalemia. We'll admit the patient for further evaluation and management. [] Dragon Disclaimer Dragon Disclaimer This electronic medical record was generated, in whole or in part, using a voice recognition dictation system. Departure Departure Impression: Primary Impression: HTN (hypertension) Additional Impressions: Hypokalemia Nausea and vomiting Cocaine abuse Drug abuse Disposition: ADMITTED INPATIENT Admitting Physician: Ilene Gomez Referrals: NO PCP (PCP) Problem Qualifiers FAREED ESCOTO DO Sep 27, 2016 03:06
[2016-09-27 03:12] LABS: BASO % 0 % (0-3); EOS % 1 % (0-3); HEMATOCRIT 35.2 % (36.0-47.0); HEMOGLOBIN 11.9 g/dL (12.0-15.5); LYMPH # 1.5 x10^3/uL (1.0-4.8); LYMPH % 17 % (24-48); MEAN CORPUSCULAR HEMOGLOBIN 30 pg (25-35); MEAN CORPUSCULAR HGB CONC 34 g/dL (31-37); MEAN CORPUSCULAR VOLUME 88 fL (79-100); MONO % 4 % (0-9); NEUT % 78 % (31-73); PLATELET COUNT 217 x10^3/uL (140-400); RED BLOOD COUNT 4.02 x10^6/uL (3.50-5.40); RED CELL DISTRIBUTION WIDTH 13.5 % (11.5-14.5); WHITE BLOOD COUNT 8.6 x10^3/uL (4.0-11.0)
[2016-09-27 03:14] LABS: BILIRUBIN,URINE NEGATIVE (NEG); GLUCOSE,URINE NEGATIVE (NEG); NITRITE,URINE NEGATIVE (NEG); PROTEIN,URINE 100 mg/dL (NEG-TRACE); UROBILINOGEN,URINE 0.2 mg/dL (0.2 mg/dL)
[2016-09-27 03:20] LABS: BACTERIA,URINE FEW /HPF (0-FEW); RBC,URINE 0 /HPF (0-2); SQUAMOUS EPITHELIAL CELL,UR MOD /LPF; WBC,URINE OCC /HPF (0-4)
[2016-09-27 03:26] LABS: ALBUMIN 3.4 g/dL (3.4-5.0); ALBUMIN/GLOBULIN RATIO 0.9 (1.0-1.7); CALCIUM 8.6 mg/dL (8.5-10.1); CREATININE 0.8 mg/dL (0.6-1.0); GFR 103.3; TOTAL BILIRUBIN 0.6 mg/dL (0.2-1.0); TOTAL PROTEIN 7.4 g/dL (6.4-8.2)
[2016-09-27 03:27] LABS: POTASSIUM 2.9 mmol/L (3.5-5.1)
[2016-09-27] MEDS ORDERED: ONDANSETRON PF 4 MG/2 ML VIAL. IV ONE (03:30)
[2016-09-27] MEDS ORDERED: ACETAMINOPHEN 500 MG TABLET PO ONE (03:30)
[2016-09-27] MEDS ORDERED: IV DEXTROSE 5% - 0.9 % NACL 500 ML IV ONE (03:30)
[2016-09-27] MEDS ORDERED: POTASSIUM CHLORIDE 20 MEQ TABLET.ER. PO ONE (04:15)
[2016-09-27] MEDS: IV NORMAL SALINE 1000ML BAG 1,000 ML IV SCH ×2 (04:33→20:11)
[2016-09-27 04:42] LABS: BARBITURATES NEG (NEG); BENZODIAZEPINES NEG (NEG); CANNABINOIDS NEG (NEG); COCAINE POS (NEG); METHADONE NEG (NEG); OPIATES NEG (NEG); PHENCYCLIDINE POS (NEG)
[2016-09-27] MEDS ORDERED: ONDANSETRON PF 4 MG/2 ML VIAL. IV PRN (04:45)
--- NOTE | 2016-09-27 05:43 | RAD ---
Obstetrical ultrasound greater than 14 weeks COMPARISON: Obstetric ultrasound August 09, 2016 and priors HISTORY: female with vomiting. TECHNIQUE: Transabdominal transducer with grayscale, color Doppler and M-mode Doppler sonography. FINDINGS: Single living intrauterine fetus is demonstrated with estimated sonographic gestational age 19 weeks 0 days and date of delivery February 21, 2017 demonstrating appropriate growth since the prior exam. Estimated weight 289 g. Head/of bowel scattered ratio 1.18. Biparietal diameter 4.16 cm gestational age 18 weeks 4 days. Head circumference 15.90 cm gestational age 18 weeks 5 days. Abdominal circumference 13.46 cm gestational age 18 weeks 6 days. Femur length 3.23 cm gestational age 20 weeks 0 days. heart rate 139 bpm. Anterior placenta, no placenta previa. Cervix length 4.9 cm no funneling. A few placental venous lakes are present. anatomy was not fully surveyed. Cisterna magna diameter 5 mm is normal. Atrial diameter 7 mm is normal. Maternal ovaries not documented could not be visualized due to shadowing. IMPRESSION: Single living intrauterine with estimated sonographic gestational age of 19 weeks 0 days as described above. Electronically signed by: Raj Ornelas MD (09/27/2016 5:39 AM) [id number]
[2016-09-27] MEDS: ACETAMINOPHEN 325 MG TABLET. PO PRN ×3 (06:04→21:14)
--- NOTE | 2016-09-27 07:53 | PDOC1 ---
History and Physical Date of Admission Date of Admission DATE: 09/27/16 TIME: 07:52 Identification/Chief Complaint Chief Complaint abd pain Problems: Source Source: Chart review, Patient History of Present Illness History of Present Illness Ms Avery is a 26 year old female admit from ER, with acute abdominal pain and headache. She was sleeping hard this AM, but easily aroused, complains of headache. 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 some nausea, no vomiting, Patient is 19 weeks gestational age with no care Patient is wanted to go to rehabilitation to quit substance abuse Past Medical History Cardiovascular: HTN Psych: Addictions Rheumatologic: No pertinent hx Infectious disease: No pertinent hx Renal/: No pertinent hx Endocrine: No pertinent hx Past Surgical History Past Surgical History: Appendectomy Family History Family History: Hypertension Social History Smoke: No ALCOHOL: none Drugs: Marijuana, Ecstasy Current Problem List Problem List Problems Medical Problems: (1) Cocaine abuse Status: Acute (2) Drug abuse Status: Acute (3) Hypokalemia Status: Acute (4) Nausea and vomiting Status: Acute (5) Status: Acute Problems: Current Medications Current Medications Current Medications Ondansetron HCl (Zofran) 4 mg 1X ONCE IV Last administered on 09/27/16 03:15; Start 09/27/16 at 03:30; Stop 09/27/16 at 03:31; Status DC Dextrose/Sodium Chloride 500 ml @ 500 mls/hr 1X ONCE IV Last administered on 09/27/16 03:19; Start 09/27/16 at 03:30; Stop 09/27/16 at 04:29; Status DC Acetaminophen (Tylenol) 1,000 mg 1X ONCE PO Last administered on 09/27/16 03: 14; Start 09/27/16 at 03:30; Stop 09/27/16 at 03:31; Status DC Potassium Chloride (Klor-Con) 40 meq 1X ONCE PO Last administered on 09/27/16 04:20; Start 09/27/16 at 04:15; Stop 09/27/16 at 04:16; Status DC Ondansetron HCl (Zofran) 4 mg PRN Q8HRS PRN IV NAUSEA/VOMITING; Start 09/27/16 at 04:45; Stop 09/28/16 at 04:44 Sodium Chloride 1,000 ml @ 100 mls/hr Q10H IV Last administered on 09/27/16 04 :33; Start 09/27/16 at 04:33; Stop 09/28/16 at 04:32 Acetaminophen (Tylenol) 650 mg PRN Q4HRS PRN PO FEVER Last administered on 06:04; Start 09/27/16 at 04:45; Stop 09/28/16 at 04:44 Active Scripts Active Labetalol Hcl 100 Mg Tablet 200 Mg PO BID Reported Amlodipine Besylate 10 Mg Tablet 10 Mg PO DAILY Allergies Allergies: Coded Allergies: Latex, Natural Rubber (Verified Allergy, Severe, Swelling, 09/27/16) Pork/Porcine Containing Products (Verified Allergy, Severe, 09/27/16) patient is protestant. ROS General: YES: Fatigue, Malaise, Appetite, No: Chills, Night Sweats, Other PSYCHOLOGICAL ROS: YES: Sleep disturbances, No: Anxiety, Behavioral Disorder, Concentration difficultie, Decreased libido , Depression, Disorientation, Hallucinations, Hostility, Irritablity, Memory difficulties, Mood Swings, Obsessive thoughts Eyes: No Blurry vision, No Decreased vision, No Double vision, No Dry eyes, No Excessive tearing, No Eye Pain, No Itchy Eyes, No Loss of vision, No Photophobia , No Scotomata, No Uses contacts, No Uses glasses, No Other HEENT: YES: Heacaches, No: Visual Changes, Hearing change, Nasal congestion, Nasal discharge, Oral lesions, Sinus pain, Sore Throat, Epistaxis, Sneezing, Snoring, Tinnitus, Vertigo, Vocal changes, Other Respiratory: No: Cough, Hemoptysis, Orthopnea, Pleuritic Pain, Shortness of breath, SOB with excertion, Sputum Changes, Stridor, Tachypnea, Wheezing, Other Cardiovascular: No Chest Pain, No Palpitations, No Orthopnea, No Paroxysmal Noc. Dyspnea, No Edema, No Lt Headedness, No Other Gastrointestinal: No Nausea, No Vomiting, No Abdominal Pain, No Diarrhea, No Constipation, No Melena, No Hematochezia, No Other Genitourinary: No Dysuria, No Frequency, No Incontinence, No Hematuria, No Retention, No Discharge, No Urgency, No Pain, No Flank Pain, No Other, No , No , No , No , No , No , No Musculoskeletal: No Gait Disturbance, No Joint Pain, No Joint Stiffness, No Joint Swelling, No Muscle Pain, No Muscular Weakness, No Pain In:, No Swelling In:, No Other Neurological: No Behavorial Changes, No Bowel/Bladder ControlChng, No Confusion , No Dizziness, No Gait Disturbance, No Headaches, No Impaired Coord/balance, No Memory Loss, No Numbness/Tingling, No Seizures, No Speech Problems, No Tremors, No Visual Changes, No Weakness, No Other Skin: No Dry Skin, No Eczema, No Hair Changes, No Lumps, No Mole Changes, No Mottling, No Nail Changes, No Pruritus, No Rash, No Skin Lesion Changes, No Other, No Acne Physical Exam General: Alert, Oriented X3, Cooperative, No acute distress HEENT: Atraumatic, PERRLA Abdomen: Normal bowel sounds, Soft Rectal Exam: not examined Extremities: No cyanosis, No edema, Normal pulses Skin: No significant lesion Neuro: Normal tone, Sensation intact, Cranial nerves 3-12 NL Psych/Mental Status: Mood NL Vitals Vitals Vital Signs Date Time Temp Pulse Resp B/P (MAP) Pulse Ox O2 Delivery O2 Flow Rate FiO2 09/27/16 05:45 98.6 82 18 156/111 (126) 100 Room Air 98.6 Labs Labs Laboratory Tests Test 09/27/16 01:36 09/27/16 02:30 09/27/16 02:36 Bedside Urine HCG, Qualitative Hcg positive (Negative) Urine Collection Type Unknown Urine Color Clara Urine Clarity Clear Urine pH 6.0 Urine Specific [place] >=1.030 Urine Protein 100 mg/dL (NEG-TRACE) Urine Glucose (UA) Negative mg/dL (NEG) Urine Ketones (Stick) >=80 mg/dL (NEG) Urine Blood Negative (NEG) Urine Nitrite Negative (NEG) Urine Bilirubin Negative (NEG) Urine Urobilinogen Dipstick 0.2 mg/dL (0.2 mg/dL) Urine Leukocyte Esterase Negative (NEG) Urine RBC 0 /HPF (0-2) Urine WBC Occ /HPF (0-4) Urine Squamous Epithelial Cells Mod /LPF Urine Bacteria Few /HPF (0-FEW) Urine Mucus Mod /LPF Urine Opiates Screen Neg (NEG) Urine Methadone Screen Neg (NEG) Urine Barbiturates Neg (NEG) Urine Phencyclidine Screen Pos (NEG) Urine Amphetamine/Methamphetamine Neg (NEG) Urine Benzodiazepines Screen Neg (NEG) Urine Cocaine Screen Pos (NEG) Urine Cannabinoids Screen Neg (NEG) Urine Ethyl Alcohol Neg (NEG) White Blood Count 8.6 x10^3/uL (4.0-11.0) Red Blood Count 4.02 x10^6/uL (3.50-5.40) Hemoglobin 11.9 g/dL (12.0-15.5) Hematocrit 35.2 % (36.0-47.0) Mean Corpuscular Volume 88 fL (79-100) Mean Corpuscular Hemoglobin 30 pg (25-35) Mean Corpuscular Hemoglobin Concent 34 g/dL (31-37) Red Cell Distribution Width 13.5 % (11.5-14.5) Platelet Count 217 x10^3/uL (140-400) Neutrophils (%) (Auto) 78 % (31-73) Lymphocytes (%) (Auto) 17 % (24-48) Monocytes (%) (Auto) 4 % (0-9) Eosinophils (%) (Auto) 1 % (0-3) Basophils (%) (Auto) 0 % (0-3) Neutrophils # (Auto) 6.6 x10^3uL (1.8-7.7) Lymphocytes # (Auto) 1.5 x10^3/uL (1.0-4.8) Monocytes # (Auto) 0.3 x10^3/uL (0.0-1.1) Eosinophils # (Auto) 0.1 x10^3/uL (0.0-0.7) Basophils # (Auto) 0.0 x10^3/uL (0.0-0.2) Sodium Level 139 mmol/L (136-145) Potassium Level 2.9 mmol/L (3.5-5.1) Chloride Level 101 mmol/L (98-107) Carbon Dioxide Level 27 mmol/L (21-32) Anion Gap 11 (6-14) Blood Urea Nitrogen 8 mg/dL (7-20) Creatinine 0.8 mg/dL (0.6-1.0) Estimated GFR (Cockcroft-Gault) 103.3 BUN/Creatinine Ratio 10 (6-20) Glucose Level 86 mg/dL (70-99) Calcium Level 8.6 mg/dL (8.5-10.1) Total Bilirubin 0.6 mg/dL (0.2-1.0) Aspartate Amino Transf (AST/SGOT) 17 U/L (15-37) Alanine Aminotransferase (ALT/SGPT) 22 U/L (14-59) Alkaline Phosphatase 60 U/L (46-116) Total Protein 7.4 g/dL (6.4-8.2) Albumin 3.4 g/dL (3.4-5.0) Albumin/Globulin Ratio 0.9 (1.0-1.7) Laboratory Tests Test 09/27/16 01:36 09/27/16 02:30 09/27/16 02:36 Bedside Urine HCG, Qualitative Hcg positive (Negative) Urine Collection Type Unknown Urine Color Clara Urine Clarity Clear Urine pH 6.0 Urine Specific [place] >=1.030 Urine Protein 100 mg/dL (NEG-TRACE) Urine Glucose (UA) Negative mg/dL (NEG) Urine Ketones (Stick) >=80 mg/dL (NEG) Urine Blood Negative (NEG) Urine Nitrite Negative (NEG) Urine Bilirubin Negative (NEG) Urine Urobilinogen Dipstick 0.2 mg/dL (0.2 mg/dL) Urine Leukocyte Esterase Negative (NEG) Urine RBC 0 /HPF (0-2) Urine WBC Occ /HPF (0-4) Urine Squamous Epithelial Cells Mod /LPF Urine Bacteria Few /HPF (0-FEW) Urine Mucus Mod /LPF Urine Opiates Screen Neg (NEG) Urine Methadone Screen Neg (NEG) Urine Barbiturates Neg (NEG) Urine Phencyclidine Screen Pos (NEG) Urine Amphetamine/Methamphetamine Neg (NEG) Urine Benzodiazepines Screen Neg (NEG) Urine Cocaine Screen Pos (NEG) Urine Cannabinoids Screen Neg (NEG) Urine Ethyl Alcohol Neg (NEG) White Blood Count 8.6 x10^3/uL (4.0-11.0) Red Blood Count 4.02 x10^6/uL (3.50-5.40) Hemoglobin 11.9 g/dL (12.0-15.5) Hematocrit 35.2 % (36.0-47.0) Mean Corpuscular Volume 88 fL (79-100) Mean Corpuscular Hemoglobin 30 pg (25-35) Mean Corpuscular Hemoglobin Concent 34 g/dL (31-37) Red Cell Distribution Width 13.5 % (11.5-14.5) Platelet Count 217 x10^3/uL (140-400) Neutrophils (%) (Auto) 78 % (31-73) Lymphocytes (%) (Auto) 17 % (24-48) Monocytes (%) (Auto) 4 % (0-9) Eosinophils (%) (Auto) 1 % (0-3) Basophils (%) (Auto) 0 % (0-3) Neutrophils # (Auto) 6.6 x10^3uL (1.8-7.7) Lymphocytes # (Auto) 1.5 x10^3/uL (1.0-4.8) Monocytes # (Auto) 0.3 x10^3/uL (0.0-1.1) Eosinophils # (Auto) 0.1 x10^3/uL (0.0-0.7) Basophils # (Auto) 0.0 x10^3/uL (0.0-0.2) Sodium Level 139 mmol/L (136-145) Potassium Level 2.9 mmol/L (3.5-5.1) Chloride Level 101 mmol/L (98-107) Carbon Dioxide Level 27 mmol/L (21-32) Anion Gap 11 (6-14) Blood Urea Nitrogen 8 mg/dL (7-20) Creatinine 0.8 mg/dL (0.6-1.0) Estimated GFR (Cockcroft-Gault) 103.3 BUN/Creatinine Ratio 10 (6-20) Glucose Level 86 mg/dL (70-99) Calcium Level 8.6 mg/dL (8.5-10.1) Total Bilirubin 0.6 mg/dL (0.2-1.0) Aspartate Amino Transf (AST/SGOT) 17 U/L (15-37) Alanine Aminotransferase (ALT/SGPT) 22 U/L (14-59) Alkaline Phosphatase 60 U/L (46-116) Total Protein 7.4 g/dL (6.4-8.2) Albumin 3.4 g/dL (3.4-5.0) Albumin/Globulin Ratio 0.9 (1.0-1.7) VTE Prophylaxis Ordered VTE Prophylaxis Devices: No VTE Pharmacological Prophylaxi: No Assessment/Plan Assessment/Plan nausea and vomiting in adult 19 wk hypokalemia, give K+ and mag substance abuse d/o. PCP and cocaine would like to enter rehab or get help with sobriety. Ob consult pending headache, tylenol PRN CORETTA CHAVEZ MD Sep 27, 2016 07:53
[2016-09-27] MEDS ORDERED: hydrALAZINE 20 MG/ML VIAL. IVP PRN (08:00)
[2016-09-27] MEDS ORDERED: POTASSIUM CHLORIDE 20 MEQ TABLET.ER. PO SCH (08:25)
[2016-09-27] MEDS ORDERED: ACETAMINOPHEN/CODEINE 300/30MG TABLET. PO ONE (08:30)
[2016-09-27] MEDS ORDERED: MAGNESIUM SULFATE 2GM 50 ML IV ONE (08:30)
[2016-09-27] MEDS: THIAMINE 100 MG TABLET. PO SCH (08:38)
[2016-09-27] MEDS: PRENATAL MULTIVITAMIN TABLET. PO SCH (08:38)
[2016-09-27] MEDS: FOLIC/VIT B COMP W-C (RENAL) TABLET. PO SCH (08:38)
--- NOTE | 2016-09-27 10:25 | PDOC2 ---
CONSULT Date of Consult Date of Consult DATE: 09/27/16 TIME: 10:13 Reason for Consult Reason for Consult: severe HTN with and Drug use Referring Physician Referring Physician: Dr. Gomez Identification/Chief Complaint Chief Complaint Severe CHTN Problems: Source Source: Patient History of Present Illness Reason for Visit: 26 y/o @ 19 wks by today's sono presented to ED with severe HTN and positive drug use for cocaine, PCP and heavy alcohol use for at least 10 years. She did not know she was until today. She does not have custody of previous 3 children. She reports CHTN since teenager. She is not currently taking any medication for her CHTN. Past Medical History Cardiovascular: HTN Psych: Addictions Rheumatologic: No pertinent hx Infectious disease: No pertinent hx Renal/: No pertinent hx Endocrine: No pertinent hx Past Surgical History Past Surgical History: Appendectomy Family History Family History: Hypertension Social History No ALCOHOL: none Drugs: Marijuana, Ecstasy Lives: Friends Current Problem List Problem List Problems Medical Problems: (1) Cocaine abuse Status: Acute (2) Drug abuse Status: Acute (3) Hypokalemia Status: Acute (4) Nausea and vomiting Status: Acute (5) Status: Acute Current Medications Current Medications Current Medications Ondansetron HCl (Zofran) 4 mg 1X ONCE IV Last administered on 09/27/16 03:15; Start 09/27/16 at 03:30; Stop 09/27/16 at 03:31; Status DC Dextrose/Sodium Chloride 500 ml @ 500 mls/hr 1X ONCE IV Last administered on 09/27/16 03:19; Start 09/27/16 at 03:30; Stop 09/27/16 at 04:29; Status DC Acetaminophen (Tylenol) 1,000 mg 1X ONCE PO Last administered on 09/27/16 03: 14; Start 09/27/16 at 03:30; Stop 09/27/16 at 03:31; Status DC Potassium Chloride (Klor-Con) 40 meq 1X ONCE PO Last administered on 09/27/16 04:20; Start 09/27/16 at 04:15; Stop 09/27/16 at 04:16; Status DC Ondansetron HCl (Zofran) 4 mg PRN Q8HRS PRN IV NAUSEA/VOMITING; Start 09/27/16 at 04:45; Stop 09/28/16 at 04:44 Sodium Chloride 1,000 ml @ 100 mls/hr Q10H IV Last administered on 09/27/16 04 :33; Start 09/27/16 at 04:33; Stop 09/28/16 at 04:32 Acetaminophen (Tylenol) 650 mg PRN Q4HRS PRN PO FEVER Last administered on 06:04; Start 09/27/16 at 04:45; Stop 09/28/16 at 04:44 Hydralazine HCl (Apresoline) 10 mg PRN Q10MIN PRN IVP ELEVATED BP, SEE COMMENTS Last administered on 09/27/16 08:40; Start 09/27/16 at 08:00 Labetalol HCl (Normodyne) 20 mg PRN Q20MIN PRN IVP HYPERTENSION, SEE COMMENTS; Start 09/27/16 at 08:00 Thiamine Mononitrate (Vitamin B-1) 100 mg DAILY PO Last administered on 08:38; Start 09/27/16 at 09:00 Vitamin B Complex/ Vitamin C (Patricia-Idalia) 1 tab DAILY PO Last administered on 08:38; Start 09/27/16 at 09:00 Multivit/ Folic Acid/Iron (Multivitamin ) 1 tab DAILY PO Last administered on 09/27/16 08:38; Start 09/27/16 at 09:00 Magnesium Sulfate/ Dextrose 50 ml @ 25 mls/hr 1X ONCE IV Last administered on 09/27/16 08:40; Start 09/27/16 at 08:30; Stop 09/27/16 at 10:29 Acetaminophen/ Codeine Phosphate (Tylenol #3) 1 tab 1X ONCE PO Last administered on 09/27/16 08:49; Start 09/27/16 at 08:30; Stop 09/27/16 at 08:31; Status DC Potassium Chloride (Klor-Con) 20 meq [id number] PO Last administered on 08:39; Start 09/27/16 at 08:25 Active Scripts Active Labetalol Hcl 100 Mg Tablet 200 Mg PO BID Reported Amlodipine Besylate 10 Mg Tablet 10 Mg PO DAILY Allergies Allergies: Coded Allergies: Latex, Natural Rubber (Verified Allergy, Severe, Swelling, 09/27/16) Pork/Porcine Containing Products (Verified Allergy, Severe, 09/27/16) patient is holiness. ROS General: YES: Fatigue, Appetite, No: Chills, Night Sweats, Malaise, Other PSYCHOLOGICAL ROS: YES: Anxiety, Behavioral Disorder, Concentration difficultie , Disorientation, Mood Swings, No: Decreased libido, Depression, Hallucinations, Hostility, Irritablity, Memory difficulties, Obsessive thoughts, Physical abuse, Sexual abuse, Sleep disturbances, Suicidal ideation, Other Eyes: Yes Blurry vision, No Decreased vision, No Double vision, No Dry eyes, No Excessive tearing, No Eye Pain, No Itchy Eyes, No Loss of vision, No Photophobia, No Scotomata, No Uses contacts, No Uses glasses, No Other HEENT: YES: Heacaches, No: Visual Changes, Hearing change, Nasal congestion, Nasal discharge, Oral lesions, Sinus pain, Sore Throat, Epistaxis, Sneezing, Snoring, Tinnitus, Vertigo, Vocal changes, Other ALLERGY AND IMMUNOLOGY: No: Hives, Insect Bite Sensitivity, Itchy/Watery Eyes, Nasal Congestion, Post Nasal Drip, Seasonal Allergies, Other Hematological and Lymphatic: No: Bleeding Problems, Blood Clots, Blood Transfusions, Brusing, Night Sweats, Pallor, Swollen Lymph Nodes, Other ENDOCRINE: No: Breast Changes, Galactorrhea, Hair Pattern Changes, Hot Flashes , Malaise/lethargy, Mood Swings, Palpitations, Polydipsia/polyuria, Skin Changes , Temperature Intolerance, Unexpected Weight Changes, Other Breast: No New/Changing Breast Lumps, No Nipple changes, No Nipple discharge, No Other Respiratory: No: Cough, Hemoptysis, Orthopnea, Pleuritic Pain, Shortness of breath, SOB with excertion, Sputum Changes, Stridor, Tachypnea, Wheezing, Other Cardiovascular: No Chest Pain, No Palpitations, No Orthopnea, No Paroxysmal Noc. Dyspnea, No Edema, No Lt Headedness, No Other Gastrointestinal: No Nausea, No Vomiting, No Abdominal Pain, No Diarrhea, No Constipation, No Melena, No Hematochezia, No Other Musculoskeletal: No Gait Disturbance, No Joint Pain, No Joint Stiffness, No Joint Swelling, No Muscle Pain, No Muscular Weakness, No Pain In:, No Swelling In:, No Other Neurological: No Behavorial Changes, No Bowel/Bladder ControlChng, No Confusion , No Dizziness, No Gait Disturbance, No Headaches, No Impaired Coord/balance, No Memory Loss, No Numbness/Tingling, No Seizures, No Speech Problems, No Tremors, No Visual Changes, No Weakness, No Other Skin: No Dry Skin, No Eczema, No Hair Changes, No Lumps, No Mole Changes, No Mottling, No Nail Changes, No Pruritus, No Rash, No Skin Lesion Changes, No Other, No Acne Physical Exam General: Alert, Cooperative, No acute distress Lungs: Clear to auscultation Heart: No murmurs Abdomen: Soft, No tenderness, No masses Psych/Mental Status: Other (paranoia, rushed speech, with disoreintation. ) Vitals VITALS Vital Signs Date Time Temp Pulse Resp B/P (MAP) Pulse Ox O2 Delivery O2 Flow Rate FiO2 09/27/16 08:49 Room Air 09/27/16 08:40 72 152/95 09/27/16 07:00 97.9 20 96 97.9 Labs Labs Laboratory Tests Test 09/27/16 01:36 09/27/16 02:30 09/27/16 02:36 Bedside Urine HCG, Qualitative Hcg positive (Negative) Urine Collection Type Unknown Urine Color Clara Urine Clarity Clear Urine pH 6.0 Urine Specific [place] >=1.030 Urine Protein 100 mg/dL (NEG-TRACE) Urine Glucose (UA) Negative mg/dL (NEG) Urine Ketones (Stick) >=80 mg/dL (NEG) Urine Blood Negative (NEG) Urine Nitrite Negative (NEG) Urine Bilirubin Negative (NEG) Urine Urobilinogen Dipstick 0.2 mg/dL (0.2 mg/dL) Urine Leukocyte Esterase Negative (NEG) Urine RBC 0 /HPF (0-2) Urine WBC Occ /HPF (0-4) Urine Squamous Epithelial Cells Mod /LPF Urine Bacteria Few /HPF (0-FEW) Urine Mucus Mod /LPF Urine Opiates Screen Neg (NEG) Urine Methadone Screen Neg (NEG) Urine Barbiturates Neg (NEG) Urine Phencyclidine Screen Pos (NEG) Urine Amphetamine/Methamphetamine Neg (NEG) Urine Benzodiazepines Screen Neg (NEG) Urine Cocaine Screen Pos (NEG) Urine Cannabinoids Screen Neg (NEG) Urine Ethyl Alcohol Neg (NEG) White Blood Count 8.6 x10^3/uL (4.0-11.0) Red Blood Count 4.02 x10^6/uL (3.50-5.40) Hemoglobin 11.9 g/dL (12.0-15.5) Hematocrit 35.2 % (36.0-47.0) Mean Corpuscular Volume 88 fL (79-100) Mean Corpuscular Hemoglobin 30 pg (25-35) Mean Corpuscular Hemoglobin Concent 34 g/dL (31-37) Red Cell Distribution Width 13.5 % (11.5-14.5) Platelet Count 217 x10^3/uL (140-400) Neutrophils (%) (Auto) 78 % (31-73) Lymphocytes (%) (Auto) 17 % (24-48) Monocytes (%) (Auto) 4 % (0-9) Eosinophils (%) (Auto) 1 % (0-3) Basophils (%) (Auto) 0 % (0-3) Neutrophils # (Auto) 6.6 x10^3uL (1.8-7.7) Lymphocytes # (Auto) 1.5 x10^3/uL (1.0-4.8) Monocytes # (Auto) 0.3 x10^3/uL (0.0-1.1) Eosinophils # (Auto) 0.1 x10^3/uL (0.0-0.7) Basophils # (Auto) 0.0 x10^3/uL (0.0-0.2) Sodium Level 139 mmol/L (136-145) Potassium Level 2.9 mmol/L (3.5-5.1) Chloride Level 101 mmol/L (98-107) Carbon Dioxide Level 27 mmol/L (21-32) Anion Gap 11 (6-14) Blood Urea Nitrogen 8 mg/dL (7-20) Creatinine 0.8 mg/dL (0.6-1.0) Estimated GFR (Cockcroft-Gault) 103.3 BUN/Creatinine Ratio 10 (6-20) Glucose Level 86 mg/dL (70-99) Calcium Level 8.6 mg/dL (8.5-10.1) Total Bilirubin 0.6 mg/dL (0.2-1.0) Aspartate Amino Transf (AST/SGOT) 17 U/L (15-37) Alanine Aminotransferase (ALT/SGPT) 22 U/L (14-59) Alkaline Phosphatase 60 U/L (46-116) Total Protein 7.4 g/dL (6.4-8.2) Albumin 3.4 g/dL (3.4-5.0) Albumin/Globulin Ratio 0.9 (1.0-1.7) Laboratory Tests Test 09/27/16 01:36 09/27/16 02:30 09/27/16 02:36 Bedside Urine HCG, Qualitative Hcg positive (Negative) Urine Collection Type Unknown Urine Color [place] Urine Clarity Clear Urine pH 6.0 Urine Specific [place] >=1.030 Urine Protein 100 mg/dL (NEG-TRACE) Urine Glucose (UA) Negative mg/dL (NEG) Urine Ketones (Stick) >=80 mg/dL (NEG) Urine Blood Negative (NEG) Urine Nitrite Negative (NEG) Urine Bilirubin Negative (NEG) Urine Urobilinogen Dipstick 0.2 mg/dL (0.2 mg/dL) Urine Leukocyte Esterase Negative (NEG) Urine RBC 0 /HPF (0-2) Urine WBC Occ /HPF (0-4) Urine Squamous Epithelial Cells Mod /LPF Urine Bacteria Few /HPF (0-FEW) Urine Mucus Mod /LPF Urine Opiates Screen Neg (NEG) Urine Methadone Screen Neg (NEG) Urine Barbiturates Neg (NEG) Urine Phencyclidine Screen Pos (NEG) Urine Amphetamine/Methamphetamine Neg (NEG) Urine Benzodiazepines Screen Neg (NEG) Urine Cocaine Screen Pos (NEG) Urine Cannabinoids Screen Neg (NEG) Urine Ethyl Alcohol Neg (NEG) White Blood Count 8.6 x10^3/uL (4.0-11.0) Red Blood Count 4.02 x10^6/uL (3.50-5.40) Hemoglobin 11.9 g/dL (12.0-15.5) Hematocrit 35.2 % (36.0-47.0) Mean Corpuscular Volume 88 fL (79-100) Mean Corpuscular Hemoglobin 30 pg (25-35) Mean Corpuscular Hemoglobin Concent 34 g/dL (31-37) Red Cell Distribution Width 13.5 % (11.5-14.5) Platelet Count 217 x10^3/uL (140-400) Neutrophils (%) (Auto) 78 % (31-73) Lymphocytes (%) (Auto) 17 % (24-48) Monocytes (%) (Auto) 4 % (0-9) Eosinophils (%) (Auto) 1 % (0-3) Basophils (%) (Auto) 0 % (0-3) Neutrophils # (Auto) 6.6 x10^3uL (1.8-7.7) Lymphocytes # (Auto) 1.5 x10^3/uL (1.0-4.8) Monocytes # (Auto) 0.3 x10^3/uL (0.0-1.1) Eosinophils # (Auto) 0.1 x10^3/uL (0.0-0.7) Basophils # (Auto) 0.0 x10^3/uL (0.0-0.2) Sodium Level 139 mmol/L (136-145) Potassium Level 2.9 mmol/L (3.5-5.1) Chloride Level 101 mmol/L (98-107) Carbon Dioxide Level 27 mmol/L (21-32) Anion Gap 11 (6-14) Blood Urea Nitrogen 8 mg/dL (7-20) Creatinine 0.8 mg/dL (0.6-1.0) Estimated GFR (Cockcroft-Gault) 103.3 BUN/Creatinine Ratio 10 (6-20) Glucose Level 86 mg/dL (70-99) Calcium Level 8.6 mg/dL (8.5-10.1) Total Bilirubin 0.6 mg/dL (0.2-1.0) Aspartate Amino Transf (AST/SGOT) 17 U/L (15-37) Alanine Aminotransferase (ALT/SGPT) 22 U/L (14-59) Alkaline Phosphatase 60 U/L (46-116) Total Protein 7.4 g/dL (6.4-8.2) Albumin 3.4 g/dL (3.4-5.0) Albumin/Globulin Ratio 0.9 (1.0-1.7) Assessment/Plan Assessment/Plan A: severe CHTN Current Drug Use 19 wks IUP P: Control severe blood pressures with hydralazine and labetalol, then procardia termite control servicer. FHT's daily. Social work consult for rehab options and for custody of current when time for delivery. Pt. does not have custody of previous 3 children. LION WARD Jr, MD Sep 27, 2016 10:25
[2016-09-27] MEDS: LABETALOL 20 MG/4 ML DISP.SYRIN. IVP PRN ×2 (10:39→15:08)
[2016-09-27] MEDS: NICOTINE 14MG PATCH. TD PRN ×2 (12:27→15:22)
[2016-09-27] MEDS: diphenhydrAMINE 50 MG/ML VIAL IVP PRN ×2 (15:07→21:14)
[2016-09-27] MEDS: oxyCODONE/APAP 5/325 1 TAB TABLET PO PRN (15:09)
[2016-09-28 02:46] VITALS: BP 134/95
[2016-09-28] MEDS: oxyCODONE/APAP 5/325 1 TAB TABLET PO PRN ×2 (03:07→09:08)
[2016-09-28] MEDS: IV NORMAL SALINE 1000ML BAG 1,000 ML IV SCH (03:08)
[2016-09-28 06:22] LABS: BASO # 0.1 x10^3/uL (0.0-0.2); BASO % 1 % (0-3); EOS % 2 % (0-3); LYMPH # 2.8 x10^3/uL (1.0-4.8); LYMPH % 38 % (24-48); MEAN CORPUSCULAR HEMOGLOBIN 30 pg (25-35); MEAN CORPUSCULAR HGB CONC 34 g/dL (31-37); MEAN CORPUSCULAR VOLUME 89 fL (79-100); MONO % 7 % (0-9); NEUT % 53 % (31-73); PLATELET COUNT 173 x10^3/uL (140-400); RED BLOOD COUNT 3.37 x10^6/uL (3.50-5.40); RED CELL DISTRIBUTION WIDTH 13.4 % (11.5-14.5); WHITE BLOOD COUNT 7.4 x10^3/uL (4.0-11.0)
[2016-09-28 06:40] LABS: CALCIUM 7.4 mg/dL (8.5-10.1); CREATININE 0.6 mg/dL (0.6-1.0)
[2016-09-28 07:00] VITALS: BP 153/95
[2016-09-28 07:00] LABS: POTASSIUM 2.9 mmol/L (3.5-5.1)
[2016-09-28] MEDS: PRENATAL MULTIVITAMIN TABLET. PO SCH (08:27)
[2016-09-28] MEDS: POTASSIUM CHLORIDE 20 MEQ TABLET.ER. PO ONE ×2 (08:28→08:33)
[2016-09-28] MEDS: FOLIC/VIT B COMP W-C (RENAL) TABLET. PO SCH (08:28)
[2016-09-28] MEDS: THIAMINE 100 MG TABLET. PO SCH (08:30)
[2016-09-28] MEDS: NICOTINE 14MG PATCH. TD PRN (09:07)
[2016-09-28] MEDS: NICOTINE POLACRILEX 2MG GUM PACKAGE of 12. BC PRN ×2 (09:07→12:00)
[2016-09-28] MEDS: diphenhydrAMINE 50 MG/ML VIAL IVP PRN (09:09)
[2016-09-28 11:00] VITALS: BP 151/95
[2016-09-28] MEDS ORDERED: POTASSIUM CHLORIDE 20 MEQ TABLET.ER. PO ONE ×2 (12:00→14:30)
--- NOTE | 2016-09-28 12:48 | PDOC ---
OB Progress Note Date of Service 09/28/16 Time of Evaluation 1245 Problem List Problems Medical Problems: (1) Cocaine abuse Status: Acute (2) Drug abuse Status: Acute (3) Hypokalemia Status: Acute (4) Nausea and vomiting Status: Acute (5) Status: Acute Notes Pt. feeling better. She wants to go home. BP improved since admission. Pt. needs social professionals consult. Lab Laboratory Tests Test 09/27/16 01:36 09/27/16 02:30 09/27/16 02:36 09/28/16 04:50 Bedside Urine HCG, Qualitative Hcg positive (Negative) Urine Collection Type Unknown Urine Color Clara Urine Clarity Clear Urine pH 6.0 Urine Specific [place] >=1.030 Urine Protein 100 mg/dL (NEG-TRACE) Urine Glucose (UA) Negative mg/dL (NEG) Urine Ketones (Stick) >=80 mg/dL (NEG) Urine Blood Negative (NEG) Urine Nitrite Negative (NEG) Urine Bilirubin Negative (NEG) Urine Urobilinogen Dipstick 0.2 mg/dL (0.2 mg/dL) Urine Leukocyte Esterase Negative (NEG) Urine RBC 0 /HPF (0-2) Urine WBC Occ /HPF (0-4) Urine Squamous Epithelial Cells Mod /LPF Urine Bacteria Few /HPF (0-FEW) Urine Mucus Mod /LPF Urine Opiates Screen Neg (NEG) Urine Methadone Screen Neg (NEG) Urine Barbiturates Neg (NEG) Urine Phencyclidine Screen Pos (NEG) Urine Amphetamine/Methamphetamine Neg (NEG) Urine Benzodiazepines Screen Neg (NEG) Urine Cocaine Screen Pos (NEG) Urine Cannabinoids Screen Neg (NEG) Urine Ethyl Alcohol Neg (NEG) White Blood Count 8.6 x10^3/uL (4.0-11.0) 7.4 x10^3/uL (4.0-11.0) Red Blood Count 4.02 x10^6/uL (3.50-5.40) 3.37 x10^6/uL (3.50-5.40) Hemoglobin 11.9 g/dL (12.0-15.5) 10.0 g/dL (12.0-15.5) Hematocrit 35.2 % (36.0-47.0) 30.0 % (36.0-47.0) Mean Corpuscular Volume 88 fL (79-100) 89 fL (79-100) Mean Corpuscular Hemoglobin 30 pg (25-35) 30 pg (25-35) Mean Corpuscular Hemoglobin Concent 34 g/dL (31-37) 34 g/dL (31-37) Red Cell Distribution Width 13.5 % (11.5-14.5) 13.4 % (11.5-14.5) Platelet Count 217 x10^3/uL (140-400) 173 x10^3/uL (140-400) Neutrophils (%) (Auto) 78 % (31-73) 53 % (31-73) Lymphocytes (%) (Auto) 17 % (24-48) 38 % (24-48) Monocytes (%) (Auto) 4 % (0-9) 7 % (0-9) Eosinophils (%) (Auto) 1 % (0-3) 2 % (0-3) Basophils (%) (Auto) 0 % (0-3) 1 % (0-3) Neutrophils # (Auto) 6.6 x10^3uL (1.8-7.7) 3.9 x10^3uL (1.8-7.7) Lymphocytes # (Auto) 1.5 x10^3/uL (1.0-4.8) 2.8 x10^3/uL (1.0-4.8) Monocytes # (Auto) 0.3 x10^3/uL (0.0-1.1) 0.5 x10^3/uL (0.0-1.1) Eosinophils # (Auto) 0.1 x10^3/uL (0.0-0.7) 0.2 x10^3/uL (0.0-0.7) Basophils # (Auto) 0.0 x10^3/uL (0.0-0.2) 0.1 x10^3/uL (0.0-0.2) Sodium Level 139 mmol/L (136-145) 138 mmol/L (136-145) Potassium Level 2.9 mmol/L (3.5-5.1) 2.9 mmol/L (3.5-5.1) Chloride Level 101 mmol/L (98-107) 105 mmol/L (98-107) Carbon Dioxide Level 27 mmol/L (21-32) 25 mmol/L (21-32) Anion Gap 11 (6-14) 8 (6-14) Blood Urea Nitrogen 8 mg/dL (7-20) 2 mg/dL (7-20) Creatinine 0.8 mg/dL (0.6-1.0) 0.6 mg/dL (0.6-1.0) Estimated GFR (Cockcroft-Gault) 103.3 144.0 BUN/Creatinine Ratio 10 (6-20) Glucose Level 86 mg/dL (70-99) 77 mg/dL (70-99) Calcium Level 8.6 mg/dL (8.5-10.1) 7.4 mg/dL (8.5-10.1) Total Bilirubin 0.6 mg/dL (0.2-1.0) Aspartate Amino Transf (AST/SGOT) 17 U/L (15-37) Alanine Aminotransferase (ALT/SGPT) 22 U/L (14-59) Alkaline Phosphatase 60 U/L (46-116) Total Protein 7.4 g/dL (6.4-8.2) Albumin 3.4 g/dL (3.4-5.0) Albumin/Globulin Ratio 0.9 (1.0-1.7) Laboratory Tests Test 09/28/16 04:50 White Blood Count 7.4 x10^3/uL (4.0-11.0) Red Blood Count 3.37 x10^6/uL (3.50-5.40) Hemoglobin 10.0 g/dL (12.0-15.5) Hematocrit 30.0 % (36.0-47.0) Mean Corpuscular Volume 89 fL (79-100) Mean Corpuscular Hemoglobin 30 pg (25-35) Mean Corpuscular Hemoglobin Concent 34 g/dL (31-37) Red Cell Distribution Width 13.4 % (11.5-14.5) Platelet Count 173 x10^3/uL (140-400) Neutrophils (%) (Auto) 53 % (31-73) Lymphocytes (%) (Auto) 38 % (24-48) Monocytes (%) (Auto) 7 % (0-9) Eosinophils (%) (Auto) 2 % (0-3) Basophils (%) (Auto) 1 % (0-3) Neutrophils # (Auto) 3.9 x10^3uL (1.8-7.7) Lymphocytes # (Auto) 2.8 x10^3/uL (1.0-4.8) Monocytes # (Auto) 0.5 x10^3/uL (0.0-1.1) Eosinophils # (Auto) 0.2 x10^3/uL (0.0-0.7) Basophils # (Auto) 0.1 x10^3/uL (0.0-0.2) Sodium Level 138 mmol/L (136-145) Potassium Level 2.9 mmol/L (3.5-5.1) Chloride Level 105 mmol/L (98-107) Carbon Dioxide Level 25 mmol/L (21-32) Anion Gap 8 (6-14) Blood Urea Nitrogen 2 mg/dL (7-20) Creatinine 0.6 mg/dL (0.6-1.0) Estimated GFR (Cockcroft-Gault) 144.0 Glucose Level 77 mg/dL (70-99) Calcium Level 7.4 mg/dL (8.5-10.1) Medications Current Medications Ondansetron HCl (Zofran) 4 mg 1X ONCE IV Last administered on 09/27/16 03:15; Start 09/27/16 at 03:30; Stop 09/27/16 at 03:31; Status DC Dextrose/Sodium Chloride 500 ml @ 500 mls/hr 1X ONCE IV Last administered on 09/27/16 03:19; Start 09/27/16 at 03:30; Stop 09/27/16 at 04:29; Status DC Acetaminophen (Tylenol) 1,000 mg 1X ONCE PO Last administered on 09/27/16 03: 14; Start 09/27/16 at 03:30; Stop 09/27/16 at 03:31; Status DC Potassium Chloride (Klor-Con) 40 meq 1X ONCE PO Last administered on 09/27/16 04:20; Start 09/27/16 at 04:15; Stop 09/27/16 at 04:16; Status DC Ondansetron HCl (Zofran) 4 mg PRN Q8HRS PRN IV NAUSEA/VOMITING; Start 09/27/16 at 04:45; Stop 09/28/16 at 04:44; Status DC Sodium Chloride 1,000 ml @ 100 mls/hr Q10H IV Last administered on 09/28/16 03 :08; Start 09/27/16 at 04:33; Stop 09/28/16 at 04:32; Status DC Acetaminophen (Tylenol) 650 mg PRN Q4HRS PRN PO FEVER Last administered on 21:14; Start 09/27/16 at 04:45; Stop 09/28/16 at 04:44; Status DC Hydralazine HCl (Apresoline) 10 mg PRN Q10MIN PRN IVP ELEVATED BP, SEE COMMENTS Last administered on 09/27/16 08:40; Start 09/27/16 at 08:00 Labetalol HCl (Normodyne) 20 mg PRN Q20MIN PRN IVP HYPERTENSION, SEE COMMENTS Last administered on 09/27/16 15:08; Start 09/27/16 at 08:00 Thiamine Mononitrate (Vitamin B-1) 100 mg DAILY PO Last administered on 08:30; Start 09/27/16 at 09:00 Vitamin B Complex/ Vitamin C (Patricia-Idalia) 1 tab DAILY PO Last administered on 08:28; Start 09/27/16 at 09:00 Multivit/ Folic Acid/Iron (Multivitamin ) 1 tab DAILY PO Last administered on 09/28/16 08:27; Start 09/27/16 at 09:00 Magnesium Sulfate/ Dextrose 50 ml @ 25 mls/hr 1X ONCE IV Last administered on 09/27/16 08:40; Start 09/27/16 at 08:30; Stop 09/27/16 at 10:29; Status DC Acetaminophen/ Codeine Phosphate (Tylenol #3) 1 tab 1X ONCE PO Last administered on 09/27/16 08:49; Start 09/27/16 at 08:30; Stop 09/27/16 at 08:31; Status DC Potassium Chloride (Klor-Con) 20 meq DAILYWBKFT PO Last administered on 08:39; Start 09/27/16 at 08:25; Stop 09/28/16 at 07:34; Status DC Nifedipine (Procardia Xl) 30 mg DAILY PO Last administered on 09/28/16 08:29; Start 09/27/16 at 11:00 Nicotine (Nicoderm Cq 14mg) 1 patch PRN DAILY PRN TD SMOKING CESSATION Last administered on 09/28/16 09:07; Start 09/27/16 at 12:30 Nicotine Polacrilex (Nicorette Gum) 1 each PRN Q1HR PRN BC SMOKING CESSATION Last administered on 09/28/16 12:00; Start 09/27/16 at 12:30 Oxycodone/ Acetaminophen (Percocet 5/325) 1 tab PRN Q6HRS PRN PO PAIN Last administered on 09/28/16 09:08; Start 09/27/16 at 14:45 Diphenhydramine HCl (Benadryl) 25 mg PRN Q6HRS PRN IVP ITCHING Last administered on 09/28/16 09:09; Start 09/27/16 at 14:45 Potassium Chloride (Klor-Con) 40 meq ONCE ONCE PO Last administered on 08:33; Start 09/28/16 at 08:00; Stop 09/28/16 at 08:01; Status DC Potassium Chloride (Klor-Con) 40 meq ONCE ONCE PO ; Start 09/28/16 at 12:00; Stop 09/28/16 at 12:01; Status DC Active Scripts Active Labetalol Hcl 100 Mg Tablet 200 Mg PO BID Reported Amlodipine Besylate 10 Mg Tablet 10 Mg PO DAILY Exam Abd: soft, mild tenderness; FHT's 135 Assessment 19 wks IUP CHTN secondary chronic drug use Plan of Care: See new orders (F/u in clinic or public health department for OB care.) LION WARD Jr, MD Sep 28, 2016 12:48
--- NOTE | 2016-09-28 12:57 | EKG ---
[facility] [address] [place] [address] Test Date: 2016-09-27 Test Time: 03:33:34 Pat Name: ANJALI TERRY Department: Room: 416 Gender: F Agricultural Equipment Salesperson: : 1990 Requested By: CORETTA CHAVEZ Order Number: [id number] Reading MD: Ronni Boateng Measurements Intervals [place] Rate: 75 P: -38 SC: 180 QRS: 49 QRSD: 96 T: 39 QT: 412 QTc: 463 Interpretive Statements SINUS RHYTHM QRS(T) CONTOUR ABNORMALITY CONSISTENT WITH ANTEROSEPTAL MYOCARDIAL DAMAGE RI6.01 Unconfirmed report Compared to ECG 08/09/2016 10:05:07 No significant changes Electronically Signed On 09-28-2016 13:25:05 CDT by Ronni Boateng
[2016-09-28] MEDS ORDERED: LABE100T3 PO (14:28)
[2016-09-28] MEDS ORDERED: PREN1TAB13 PO (14:28)
[2016-09-28] MEDS ORDERED: MAGNESIUM SULFATE 2GM 50 ML IV ONE (14:30)
[2016-09-28] MEDS ORDERED: POTA20TA82 PO (14:30)
[2016-09-28] MEDS ORDERED: NIFE30TA2 PO (14:32)
[2016-09-28 15:00] VITALS: BP 162/88
[2016-09-28] MEDS ORDERED: LABETALOL HCL 200 MG TABLET PO SCH (15:00)
--- NOTE | 2016-09-28 15:30 | PDOC ---
PROGRESS NOTES Chief Complaint Chief Complaint nausea and vomiting in adult 19 wk hypokalemia, give K+ and mag, larger dose today substance abuse d/o. PCP and cocaine Ob consult pending headache, tylenol PRN History of Present Illness History of Present Illness would like to enter rehab or get help with sobriety, but wants to go home today. She is welcome to stay another night to try to find placement and I asked her to do so. If she wants to DC, she may f/u tomorrow with [facility], Vitals Vitals Vital Signs Date Time Temp Pulse Resp B/P (MAP) Pulse Ox O2 Delivery O2 Flow Rate FiO2 09/28/16 15:00 98.9 70 16 162/88 (112) 98 Room Air 98.9 Physical Exam General: Alert, Oriented X3, Cooperative, No acute distress Heart: Regular rate, Normal S1, No murmurs Lungs: Clear, Wheezing Abdomen: Normal bowel sounds, Soft, No tenderness, No masses Extremities: No cyanosis, No edema, Normal pulses Skin: No significant lesion Labs LABS Laboratory Tests Test 09/28/16 04:50 White Blood Count 7.4 x10^3/uL (4.0-11.0) Red Blood Count 3.37 x10^6/uL (3.50-5.40) Hemoglobin 10.0 g/dL (12.0-15.5) Hematocrit 30.0 % (36.0-47.0) Mean Corpuscular Volume 89 fL (79-100) Mean Corpuscular Hemoglobin 30 pg (25-35) Mean Corpuscular Hemoglobin Concent 34 g/dL (31-37) Red Cell Distribution Width 13.4 % (11.5-14.5) Platelet Count 173 x10^3/uL (140-400) Neutrophils (%) (Auto) 53 % (31-73) Lymphocytes (%) (Auto) 38 % (24-48) Monocytes (%) (Auto) 7 % (0-9) Eosinophils (%) (Auto) 2 % (0-3) Basophils (%) (Auto) 1 % (0-3) Neutrophils # (Auto) 3.9 x10^3uL (1.8-7.7) Lymphocytes # (Auto) 2.8 x10^3/uL (1.0-4.8) Monocytes # (Auto) 0.5 x10^3/uL (0.0-1.1) Eosinophils # (Auto) 0.2 x10^3/uL (0.0-0.7) Basophils # (Auto) 0.1 x10^3/uL (0.0-0.2) Sodium Level 138 mmol/L (136-145) Potassium Level 2.9 mmol/L (3.5-5.1) Chloride Level 105 mmol/L (98-107) Carbon Dioxide Level 25 mmol/L (21-32) Anion Gap 8 (6-14) Blood Urea Nitrogen 2 mg/dL (7-20) Creatinine 0.6 mg/dL (0.6-1.0) Estimated GFR (Cockcroft-Gault) 144.0 Glucose Level 77 mg/dL (70-99) Calcium Level 7.4 mg/dL (8.5-10.1) Review of Systems Review of Systems nausea improved alessio pO no vomiting no pain Assessment and Plan Assessmemt and Plan Problems Medical Problems: (1) Cocaine abuse Status: Acute (2) Drug abuse Status: Acute (3) Hypokalemia Status: Acute (4) Nausea and vomiting Status: Acute (5) Status: Acute Problems: Comment Review of Relevant I have reviewed the following items cristobal (where applicable) has been applied. Labs Laboratory Tests Test 09/27/16 01:36 09/27/16 02:30 09/27/16 02:36 09/28/16 04:50 Bedside Urine HCG, Qualitative Hcg positive (Negative) Urine Collection Type Unknown Urine Color Clara Urine Clarity Clear Urine pH 6.0 Urine Specific [place] >=1.030 Urine Protein 100 mg/dL (NEG-TRACE) Urine Glucose (UA) Negative mg/dL (NEG) Urine Ketones (Stick) >=80 mg/dL (NEG) Urine Blood Negative (NEG) Urine Nitrite Negative (NEG) Urine Bilirubin Negative (NEG) Urine Urobilinogen Dipstick 0.2 mg/dL (0.2 mg/dL) Urine Leukocyte Esterase Negative (NEG) Urine RBC 0 /HPF (0-2) Urine WBC Occ /HPF (0-4) Urine Squamous Epithelial Cells Mod /LPF Urine Bacteria Few /HPF (0-FEW) Urine Mucus Mod /LPF Urine Opiates Screen Neg (NEG) Urine Methadone Screen Neg (NEG) Urine Barbiturates Neg (NEG) Urine Phencyclidine Screen Pos (NEG) Urine Amphetamine/Methamphetamine Neg (NEG) Urine Benzodiazepines Screen Neg (NEG) Urine Cocaine Screen Pos (NEG) Urine Cannabinoids Screen Neg (NEG) Urine Ethyl Alcohol Neg (NEG) White Blood Count 8.6 x10^3/uL (4.0-11.0) 7.4 x10^3/uL (4.0-11.0) Red Blood Count 4.02 x10^6/uL (3.50-5.40) 3.37 x10^6/uL (3.50-5.40) Hemoglobin 11.9 g/dL (12.0-15.5) 10.0 g/dL (12.0-15.5) Hematocrit 35.2 % (36.0-47.0) 30.0 % (36.0-47.0) Mean Corpuscular Volume 88 fL (79-100) 89 fL (79-100) Mean Corpuscular Hemoglobin 30 pg (25-35) 30 pg (25-35) Mean Corpuscular Hemoglobin Concent 34 g/dL (31-37) 34 g/dL (31-37) Red Cell Distribution Width 13.5 % (11.5-14.5) 13.4 % (11.5-14.5) Platelet Count 217 x10^3/uL (140-400) 173 x10^3/uL (140-400) Neutrophils (%) (Auto) 78 % (31-73) 53 % (31-73) Lymphocytes (%) (Auto) 17 % (24-48) 38 % (24-48) Monocytes (%) (Auto) 4 % (0-9) 7 % (0-9) Eosinophils (%) (Auto) 1 % (0-3) 2 % (0-3) Basophils (%) (Auto) 0 % (0-3) 1 % (0-3) Neutrophils # (Auto) 6.6 x10^3uL (1.8-7.7) 3.9 x10^3uL (1.8-7.7) Lymphocytes # (Auto) 1.5 x10^3/uL (1.0-4.8) 2.8 x10^3/uL (1.0-4.8) Monocytes # (Auto) 0.3 x10^3/uL (0.0-1.1) 0.5 x10^3/uL (0.0-1.1) Eosinophils # (Auto) 0.1 x10^3/uL (0.0-0.7) 0.2 x10^3/uL (0.0-0.7) Basophils # (Auto) 0.0 x10^3/uL (0.0-0.2) 0.1 x10^3/uL (0.0-0.2) Sodium Level 139 mmol/L (136-145) 138 mmol/L (136-145) Potassium Level 2.9 mmol/L (3.5-5.1) 2.9 mmol/L (3.5-5.1) Chloride Level 101 mmol/L (98-107) 105 mmol/L (98-107) Carbon Dioxide Level 27 mmol/L (21-32) 25 mmol/L (21-32) Anion Gap 11 (6-14) 8 (6-14) Blood Urea Nitrogen 8 mg/dL (7-20) 2 mg/dL (7-20) Creatinine 0.8 mg/dL (0.6-1.0) 0.6 mg/dL (0.6-1.0) Estimated GFR (Cockcroft-Gault) 103.3 144.0 BUN/Creatinine Ratio 10 (6-20) Glucose Level 86 mg/dL (70-99) 77 mg/dL (70-99) Calcium Level 8.6 mg/dL (8.5-10.1) 7.4 mg/dL (8.5-10.1) Total Bilirubin 0.6 mg/dL (0.2-1.0) Aspartate Amino Transf (AST/SGOT) 17 U/L (15-37) Alanine Aminotransferase (ALT/SGPT) 22 U/L (14-59) Alkaline Phosphatase 60 U/L (46-116) Total Protein 7.4 g/dL (6.4-8.2) Albumin 3.4 g/dL (3.4-5.0) Albumin/Globulin Ratio 0.9 (1.0-1.7) Laboratory Tests Test 09/28/16 04:50 White Blood Count 7.4 x10^3/uL (4.0-11.0) Red Blood Count 3.37 x10^6/uL (3.50-5.40) Hemoglobin 10.0 g/dL (12.0-15.5) Hematocrit 30.0 % (36.0-47.0) Mean Corpuscular Volume 89 fL (79-100) Mean Corpuscular Hemoglobin 30 pg (25-35) Mean Corpuscular Hemoglobin Concent 34 g/dL (31-37) Red Cell Distribution Width 13.4 % (11.5-14.5) Platelet Count 173 x10^3/uL (140-400) Neutrophils (%) (Auto) 53 % (31-73) Lymphocytes (%) (Auto) 38 % (24-48) Monocytes (%) (Auto) 7 % (0-9) Eosinophils (%) (Auto) 2 % (0-3) Basophils (%) (Auto) 1 % (0-3) Neutrophils # (Auto) 3.9 x10^3uL (1.8-7.7) Lymphocytes # (Auto) 2.8 x10^3/uL (1.0-4.8) Monocytes # (Auto) 0.5 x10^3/uL (0.0-1.1) Eosinophils # (Auto) 0.2 x10^3/uL (0.0-0.7) Basophils # (Auto) 0.1 x10^3/uL (0.0-0.2) Sodium Level 138 mmol/L (136-145) Potassium Level 2.9 mmol/L (3.5-5.1) Chloride Level 105 mmol/L (98-107) Carbon Dioxide Level 25 mmol/L (21-32) Anion Gap 8 (6-14) Blood Urea Nitrogen 2 mg/dL (7-20) Creatinine 0.6 mg/dL (0.6-1.0) Estimated GFR (Cockcroft-Gault) 144.0 Glucose Level 77 mg/dL (70-99) Calcium Level 7.4 mg/dL (8.5-10.1) Medications Current Medications Ondansetron HCl (Zofran) 4 mg 1X ONCE IV Last administered on 09/27/16t 03:15; Start 09/27/16 at 03:30; Stop 09/27/16 at 03:31; Status DC Dextrose/Sodium Chloride 500 ml @ 500 mls/hr 1X ONCE IV Last administered on 09/27/16 03:19; Start 09/27/16 at 03:30; Stop 09/27/16 at 04:29; Status DC Acetaminophen (Tylenol) 1,000 mg 1X ONCE PO Last administered on 09/27/16 03: 14; Start 09/27/16 at 03:30; Stop 09/27/16 at 03:31; Status DC Potassium Chloride (Klor-Con) 40 meq 1X ONCE PO Last administered on 09/27/16 04:20; Start 09/27/16 at 04:15; Stop 09/27/16 at 04:16; Status DC Ondansetron HCl (Zofran) 4 mg PRN Q8HRS PRN IV NAUSEA/VOMITING; Start 09/27/16 at 04:45; Stop 09/28/16 at 04:44; Status DC Sodium Chloride 1,000 ml @ 100 mls/hr Q10H IV Last administered on 09/28/16 03 :08; Start 09/27/16 at 04:33; Stop 09/28/16 at 04:32; Status DC Acetaminophen (Tylenol) 650 mg PRN Q4HRS PRN PO FEVER Last administered on 21:14; Start 09/27/16 at 04:45; Stop 09/28/16 at 04:44; Status DC Hydralazine HCl (Apresoline) 10 mg PRN Q10MIN PRN IVP ELEVATED BP, SEE COMMENTS Last administered on 09/27/16 08:40; Start 09/27/16 at 08:00 Labetalol HCl (Normodyne) 20 mg PRN Q20MIN PRN IVP HYPERTENSION, SEE COMMENTS Last administered on 09/27/16 15:08; Start 09/27/16 at 08:00 Thiamine Mononitrate (Vitamin B-1) 100 mg DAILY PO Last administered on 08:30; Start 09/27/16 at 09:00 Vitamin B Complex/ Vitamin C (Patricia-Idalia) 1 tab DAILY PO Last administered on 08:28; Start 09/27/16 at 09:00 Multivit/ Folic Acid/Iron (Multivitamin ) 1 tab DAILY PO Last administered on 09/28/16 08:27; Start 09/27/16 at 09:00 Magnesium Sulfate/ Dextrose 50 ml @ 25 mls/hr 1X ONCE IV Last administered on 09/27/16 08:40; Start 09/27/16 at 08:30; Stop 09/27/16 at 10:29; Status DC Acetaminophen/ Codeine Phosphate (Tylenol #3) 1 tab 1X ONCE PO Last administered on 09/27/16 08:49; Start 09/27/16 at 08:30; Stop 09/27/16 at 08:31; Status DC Potassium Chloride (Klor-Con) 20 meq DAILYWBKFT PO Last administered on 08:39; Start 09/27/16 at 08:25; Stop 09/28/16 at 07:34; Status DC Nifedipine (Procardia Xl) 30 mg DAILY PO Last administered on 09/28/16 08:29; Start 09/27/16 at 11:00 Nicotine (Nicoderm Cq 14mg) 1 patch PRN DAILY PRN TD SMOKING CESSATION Last administered on 09/28/16 09:07; Start 09/27/16 at 12:30 Nicotine Polacrilex (Nicorette Gum) 1 each PRN Q1HR PRN BC SMOKING CESSATION Last administered on 09/28/16 12:00; Start 09/27/16 at 12:30 Oxycodone/ Acetaminophen (Percocet 5/325) 1 tab PRN Q6HRS PRN PO PAIN Last administered on 09/28/16 09:08; Start 09/27/16 at 14:45 Diphenhydramine HCl (Benadryl) 25 mg PRN Q6HRS PRN IVP ITCHING Last administered on 09/28/16 09:09; Start 09/27/16 at 14:45 Potassium Chloride (Klor-Con) 40 meq ONCE ONCE PO Last administered on 08:33; Start 09/28/16 at 08:00; Stop 09/28/16 at 08:01; Status DC Potassium Chloride (Klor-Con) 40 meq ONCE ONCE PO Last administered on 13:11; Start 09/28/16 at 12:00; Stop 09/28/16 at 12:01; Status DC Labetalol HCl (Trandate) 200 mg BID PO ; Start 09/28/16 at 15:00 Potassium Chloride (Klor-Con) 40 meq 1X ONCE PO ; Start 09/28/16 at 14:30; Stop 09/28/16 at 14:31; Status DC Magnesium Sulfate/ Dextrose 50 ml @ 25 mls/hr 1X ONCE IV ; Start 09/28/16 at 14: 30; Stop 09/28/16 at 16:29 Nifedipine (Procardia Xl) 30 mg DAILY PO ; Start 09/28/16 at 14:45; Status UNV Active Scripts Active Labetalol Hcl 100 Mg Tablet 200 Mg PO BID Reported Amlodipine Besylate 10 Mg Tablet 10 Mg PO DAILY Vitals/I & O Vital Sign - Last 24 Hours 09/27/16 09/27/16 09/27/16 09/28/16 19:00 20:12 23:00 02:46 Temp 97.7 98.6 97.9 97.7 98.6 97.9 Pulse 84 83 79 Resp 18 18 18 B/P (MAP) 142/83 (102) 149/104 (119) 134/95 (108) Pulse Ox 97 100 99 O2 Delivery Room Air Room Air Room Air Room Air 09/28/16 09/28/16 09/28/16 09/28/16 03:07 07:00 08:00 08:29 Temp 98.6 98.6 Pulse 76 76 Resp 20 16 B/P (MAP) 153/95 (114) 153/95 Pulse Ox 100 97 O2 Delivery Room Air Room Air Room Air 09/28/16 09/28/16 09/28/16 09/28/16 09:08 10:08 11:00 15:00 Temp 97.9 98.9 97.9 98.9 Pulse 75 70 Resp 20 20 16 16 B/P (MAP) 151/95 (113) 162/88 (112) Pulse Ox 98 98 O2 Delivery Room Air Room Air Room Air Room Air Intake and Output 09/27/16 09/27/16 09/28/16 15:00 23:00 07:00 Intake Total 200 ml 200 ml 660 ml Balance 200 ml 200 ml 660 ml CORETTA CHAVEZ MD Sep 28, 2016 15:30
[2016-09-28 15:52] VITALS: BP 162/88
--- NOTE | 2016-09-29 02:33 | ACF ---
Admission Forms Criteria HYPERTENSIVE DISORDERS OF Clinical Indications for Admission to Inpatient Care (Place 'X ' for any and all applicable criteria): Admission is indicated for 1 or more of the following (1)(2)(3)(4)(5)(6)(7): [ ]I. Eclampsia[A](10) [ ]II. Preeclampsia with severe features (ie, severe preeclampsia) indicated by 1 or more of the following[B][C]: [ ]a) Preeclampsia findings present (eg, proteinuria with SBP greater than 140 mmHg or DBP greater than 90 mmHg) [ ]b) Severe signs or symptoms as indicated by ANY ONE of the following : [ ]i) SBP greater than or equal to 160 mm Hg or DBP greater than or equal to 110 mm Hg on 2 occasions at least 4 hours apart while the patient is at bed rest (UNLESS antihypertensive therapy is initiated before this time)(5) [ ]ii) Platelet count less than 100,000/mm3 (100 x109/L) [ ]iii) Impaired liver function as indicated by 1 or more of the following: [ ]a) Elevation of liver enzymes (eg, SGOT, SGPT) to twice normal concentration [ ]b) Severe persistent right upper quadrant or epigastric pain unresponsive to medication and not accounted for by alternative diagnosis [ ]iv) Progressive renal insufficiency indicated by 1 or more of the following: [ ]a) Serum creatinine concentration greater than 1.1 mg/dL (97 micromoles/L) [ ]b) Doubling (from baseline) of serum creatinine concentration in the absence of other renal disease [ ]v) Pulmonary edema [ ]vi) Cerebral or visual symptoms (eg, headache, Altered mental status, changes in vision) [ ]III. Delivery planned due to nonsevere preeclampsia as indicated by ALL of the following: [ ]i) Nonsevere preeclampsia present as indicated by ALL of the following: [ ]a) Woman at 20 or more weeks' gestation [ ]b) New-onset SBP greater than or equal to 140 mm Hg but less than 160 mm Hg or DBP greater than or equal to 90 mm Hg but less than 110 mm Hg on 2 occasions at least 4 hours apart [ ]c) Proteinuria present as indicated by 1 or more of the following: [ ]i) Urinary protein excretion greater than or equal to 300 mg per 24-hour collection (or this amount extrapolated from a shorter timed collection) [ ]ii) Protein/creatinine ratio greater than or equal to 0.3 (measured in mg/dL) [ ]ii) Delivery indicated due to 1 or more of the following: [ ]a) Gestational age of 37 0/7 weeks or more [ ]b) Gestational age of 34 0/7 weeks to 36 6/7 weeks and 1 or more of the following: [ ]i) Progressive labor or rupture of membranes [ ]ii) Abnormal biophysical profile [ ]iii) Suspected abruptio placentae [ ]iv) Ultrasound estimate of weight less than 5th percentile [ ]v) Other indication for delivery [ ]IV. Delivery planned due to gestational hypertension[D] because of 1 or more of the following: [ ]i) Delivery indicated because gestational age of 37 0/ 7 weeks or more has been reached [ ]ii) Gestational age of 34 0/7 weeks to 36 6/7 weeks for which delivery is indicated because of 1 or more of the following: [ ]a) Progressive labor or rupture of membranes [ ]b) Abnormal biophysical profile [ ]c) Suspected abruptio placentae [ ]d) Ultrasound estimate of weight less than 5th percentile [ ]e) Other indication for delivery [ ]V. Hypertension of any category[E] during with acute end organ damage as indicated by 1 or more of the following: [ ]a) Hypertensive encephalopathy (eg, Altered mental status that is severe or persistent )(13) [ ]b) Cerebral infarction [ ]c) Intracerebral hemorrhage [ ]d) Myocardial infarction [ ]e) Pulmonary edema [ ]f) Aortic dissection [ ]g) Seizures [ ]h) Papilledema [ ]i) Microangiopathic hemolytic anemia [ ]j) Visual loss [ ]k) Acute renal failure [ ]. Hypertension during pregnancywith evidence of compromise as indicated by 1 or more of the following: [ ]a) Abnormal heart tones [ ]b) Abnormal stress test [ ]c) Abnormal biophysical profile [X ]VII. patient requires inpatient control of blood pressure indicated by (see Hypertensive Disorders of : Observation Care ISC guideline as appropriate) ALL of the following: [X ]a) SBP is greater than or equal to 160 mm Hg or DBP is greater than or equal to 105 mm Hg [ ]b) Blood pressure cannot be reduced below these levels with outpatient or observation care treatment (eg, oral medications not effective) Extended stay beyond goal length of stay may be needed for(1)(2)(12)(27) : [ ]a) Eclampsia [ ]b) Ongoing compromise [ ]c) Complications of hypertensive disorders of [ ]d) Active comorbidities (eg, heart failure, poorly controlled diabetes, renal insufficiency) (31) [ ]e) Persistent hypertension [ ]f) Delivery planned The original [facility] [employer] content created by [employer] has been revised. The portions of the content which have been revised are identified through the use of italic text, and [facility] has neither reviewed nor approved the modified material. All other unmodified content is copyright [facility] [employer]. Please see references footnoted in the original [facility] [place] [employer] edition 2015. Admission Criteria Met?: Yes DUSTIN ELLIS Sep 29, 2016 02:33
== END 2016-09-28 18:30 | disposition home or self-care (01) | DRG 781 ==
LOC: ER 02:18 → 4 NORTH 04:20
PROVIDERS: ADMIT Internal Medicine; ATTEND Internal Medicine
DX: O10.912 Unspecified pre-existing hypertension complicating pregnancy, second trimester (principal); O99.322 Drug use complicating pregnancy, second trimester; O99.282 Endocrine, nutritional and metabolic diseases complicating pregnancy, second trimester; F14.10 Cocaine abuse, uncomplicated; E87.6 Hypokalemia; O21.9 Vomiting of pregnancy, unspecified; Z3A.19 19 weeks gestation of pregnancy; Z82.49 Family history of ischemic heart disease and other diseases of the circulatory system; Z90.49 Acquired absence of other specified parts of digestive tract
CPT/HCPCS: 36415; 76805; 80048; 80053; 80307; 81001; 81025; 85027; 93005; 96361; 96374; 99406; J0360; J1200; J2405; J3490; J7030; J7042; J7060; 99285-25; G0479

== ENCOUNTER 2016-10-05 00:11 | Emergency (ER) | payer SELFPAY ==
[~2016-10-05] VITALS: Ht 165.1 cm; Wt 89.8 kg
[~2016-10-05 00:11] MED LIST changes: +NIFE30TA2 PO; +POTA20TA82 PO; +PREN1TAB13 PO
[2016-10-05] MEDS ORDERED: LABETALOL HCL 100 MG TABLET. PO ONE (01:00)
--- NOTE | 2016-10-05 01:11 | PHYS DOC ---
Past Medical History Past Medical History: Hypertension, Migraines Additional Past Medical Histor: Previous "cutting" that pt reports no treatment for; preeclampsia Past Surgical History: Appendectomy Alcohol Use: Occasionally Additional Information: last use 09/26/2016 went to [facility] Drug Use: Cocaine, Marijuana, Phencyclidine, Other Social History Narrative: last used 10/01/2016 now at [facility] detox Adult General Chief Complaint Chief Complaint: HYPERTENSION HPI HPI Patient is a 26 year old female who is 20 weeks 1 day who presents to the ER today from her drug and alcohol rehabilitation facility secondary to an elevated blood pressure. She was recently minutes to the hospital secondary to her elevated blood pressure. Patient has been seen by her [employer] doctor here in the hospital and she was started on labetalol and Procardia to treat her hypertension. Patient reports that secondary to her drug addiction she went straight to rehabilitation. Patient reports while rehabilitation they check her blood pressure for blood pressure is elevated patient brought to the nearest hospital. Patient reports that she was sent to [facility] yesterday secondary to a asymptomatic elevated blood pressure. Patient reports that [facility] evaluated her and sent her back without any further change in management. Patient reports this evening her blood pressure was elevated again during her routine blood blood pressure checks and therefore they sent her to [facility] for further evaluation. She reports that yesterday [facility] spoke to them and told them not to send her back for her elevated blood pressure. Patient reports that she was sent home was 2 prescriptions one for Procardia and one for labetalol when she was admitted to the hospital here. Patient reports that it is the facility's policy that no one is allowed to leave to get her medications or prescriptions filled. Patient reports that she has not been able to get her medications filled secondary to the rehabilitation facility's policy. She reports no one at the facility is willing to get her medicines filled for her. Essentially patient has been at this facility with her prescriptions that were given her from [facility] after her discharge in her purse and they have not been filled and the facility is obstructing her ability to get her medication filled. She did not want to leave the facility and risk losing her spot at the rehabilitation center and therefore she did not leave and get her medications filled. Unfortunately for the patient, she is in a situation where if she leaves to get her medication filled she'll be kicked out of the facility however if she does not get her medication filled her blood pressure will be elevated and she will be kicked out by the facility secondary to her elevated blood pressure. At this point patient has been kicked out of the facility because her blood pressure is too high and they will not take her back. Patient reports that when she is discharged from here that she will go home and that she will get her medications filled. Patient reports that it is not a financial issue that is preventing her from getting her medications filled but rather the institutional restrictions at the facility. Patient has no other significant complaints at this time. Patient reports that she has no new symptomatology. She reports some dizziness which is not new for her. Patient complaining of some mild abdominal discomfort around her right abdomen which she reports she's had throughout the entirety of this . Patient denies any fevers shakes chills nausea vomiting diarrhea chest pain shortness of breath cough cold rhinorrhea. Patient denies any double vision. Review of systems: Constitutional: Denies fever or chills Eyes: Denies change in visual acuity, redness, or eye pain HENT: Denies nasal congestion or sore throat All other review systems are negative except as documented in the history of present illness portion. Physical exam: Constitutional: Well developed, well nourished, no acute distress, non-toxic appearance. HENT: Normocephalic, atraumatic, bilateral external ears normal, Eyes: EOMI, conjunctiva normal, no discharge. No papilledema Neck: Normal range of motion, no tenderness, supple, no stridor. Cardiovascular: Regular rate Lungs & Thorax: Bilateral breath sounds clear to auscultation no wheezing rales or rhonchi Abdomen: Bowel sounds normal, soft, no tenderness, Skin: Warm, dry, no erythema, no rash. Back: No tenderness, no CVA tenderness. Extremities: ROM intact, no edema. Neurologic: Alert and oriented X 3, normal motor function, normal sensory function, no focal deficits noted. Psychologic: Affect normal, judgement normal, mood normal. heart tones at 1:[address] by the OB nurses. I discussed this with the patient and she is requesting that we give her a dose of her blood pressure medications tonight to initiate her therapy. She reports tomorrow morning when she wakes up she will return the nearest pharmacy and get her medications filled. Patient reports she does not have a financial optical getting her medications filled at this time. Assessment and plan This is a 26-year-old female who is 20 weeks who presents to the ER secondary to elevated blood pressure. The OB floor was contacted and they've declined transfer the patient to the OB floor for further heart monitoring. Patient does not have any complaints at this time. She reports she feels the baby kicking. The OB floor has come down and they have done a bedside Doppler on her and her heart rate is 132. Patient's clinically and hemodynamically stable this time for discharged home with her elevated blood pressure and we have initiated therapy. Patient does have a plan but does have an [employer] doctor that she can follow-up with. Patient will be encouraged to call Dr. Salinas in the a.m. to arrange for follow-up. Current Medications Current Medications Current Medications Medications (Trade) Dose Ordered Sig/Gladys Start Time Stop Time Status Last Admin Dose Admin Labetalol HCl (Trandate) 100 mg ONCE ONCE 10/05/16 01:00 10/05/16 01:01 DC Nifedipine (Procardia Xl) 30 mg ONCE ONCE 10/05/16 01:00 10/05/16 01:01 DC Allergies Allergies Allergies Coded Allergies Type Severity Reaction Last Updated Verified Latex, Natural Rubber Allergy Severe Swelling 09/27/16 Yes Pork/Porcine Containing Products Allergy Severe 09/27/16 Yes Current Patient Data Vital Signs Vital Signs Date Time Temp Pulse Resp B/P (MAP) Pulse Ox O2 Delivery O2 Flow Rate FiO2 10/05/16 00:22 98.0 75 20 183/96 (125) 99 Room Air 98.0 EKG EKG [] Radiology/Procedures Radiology/Procedures [] Course & Med Decision Making Course & Med Decision Making Pertinent Labs and Imaging studies reviewed. (See chart for details) [] Dragon Disclaimer Dragon Disclaimer This electronic medical record was generated, in whole or in part, using a voice recognition dictation system. Departure Departure Impression: Primary Impression: Additional Impression: Hypertension Disposition: HOME, SELF-CARE Condition: IMPROVED Referrals: NO PCP (PCP) Patient Instructions: ABCs of , Abdominal Pain During , Alcohol and Drug Addiction, Finding Treatment, Hypertension Additional Instructions: Please call your case investigator as the morning to have them assist you with getting into an appropriate drug and alcohol rehabilitation program. Return the ER for any concerning symptoms whatsoever. Return the ER if you have worsening headaches double vision or blurred vision chest pain shortness of breath or abdominal pain. Continue with your current plan to follow up with her [employer] doctor for further OB care. Problem Qualifiers IBETH SOAS MD Oct 05, 2016 01:11
[2016-10-05 01:21] VITALS: BP 195/98
== END 2016-10-05 01:28 | disposition home or self-care (01) ==
LOC: ER 00:11
DX: O16.2 Unspecified maternal hypertension, second trimester (principal); O26.892 Other specified pregnancy related conditions, second trimester; Z3A.20 20 weeks gestation of pregnancy; G43.909 Migraine, unspecified, not intractable, without status migrainosus; F12.10 Cannabis abuse, uncomplicated; F14.10 Cocaine abuse, uncomplicated; F16.10 Hallucinogen abuse, uncomplicated; Z90.49 Acquired absence of other specified parts of digestive tract; Z91.040 Latex allergy status; Z91.018 Allergy to other foods
CPT/HCPCS: 99284

== ENCOUNTER 2016-10-13 01:52 | Observation (INO) | payer SELFPAY ==
[~2016-10-13] VITALS: Ht 175.3 cm; Wt 85.3 kg
[2016-10-13] MEDS ORDERED: IV RINGERS,LACTATED 1000ML 1,000 ML IV SCH ×3 (02:01→03:02)
[2016-10-13 02:02] VITALS: BP 183/120
[2016-10-13 02:54] LABS: BILIRUBIN,URINE SMALL (NEG); GLUCOSE,URINE NEGATIVE (NEG); NITRITE,URINE NEGATIVE (NEG); PROTEIN,URINE 100 mg/dL (NEG-TRACE)
[2016-10-13 02:59] LABS: BARBITURATES NEG (NEG); BENZODIAZEPINES NEG (NEG); CANNABINOIDS NEG (NEG); COCAINE POS (NEG); METHADONE NEG (NEG); OPIATES NEG (NEG); PHENCYCLIDINE POS (NEG)
[2016-10-13 03:03] LABS: BACTERIA,URINE FEW /HPF (0-FEW); RBC,URINE 0 /HPF (0-2); SQUAMOUS EPITHELIAL CELL,UR MOD /LPF; WBC,URINE OCC /HPF (0-4)
[2016-10-13] MEDS ORDERED: LABETALOL 20 MG/4 ML DISP.SYRIN. IVP PRN ×2 (03:15→05:00)
[2016-10-13] MEDS ORDERED: ACETAMINOPHEN 325 MG TABLET. PO PRN (03:15)
[2016-10-13] MEDS ORDERED: 0.9 % SODIUM CHLORIDE 10 ML DISP.SYRIN. IV PRN (03:15)
[2016-10-13 03:20] VITALS: BP 185/114
[2016-10-13 03:52] VITALS: BP 185/115
[2016-10-13 04:10] LABS: BASO # 0.1 x10^3/uL (0.0-0.2); BASO % 1 % (0-3); EOS % 2 % (0-3); HEMATOCRIT 32.5 % (36.0-47.0); HEMOGLOBIN 11.1 g/dL (12.0-15.5); LYMPH # 2.4 x10^3/uL (1.0-4.8); LYMPH % 28 % (24-48); MEAN CORPUSCULAR HEMOGLOBIN 30 pg (25-35); MEAN CORPUSCULAR HGB CONC 34 g/dL (31-37); MEAN CORPUSCULAR VOLUME 88 fL (79-100); MONO % 7 % (0-9); NEUT % 63 % (31-73); PLATELET COUNT 209 x10^3/uL (140-400); RED BLOOD COUNT 3.68 x10^6/uL (3.50-5.40); RED CELL DISTRIBUTION WIDTH 13.2 % (11.5-14.5); WHITE BLOOD COUNT 8.7 x10^3/uL (4.0-11.0)
[2016-10-13 04:25] LABS: ALBUMIN/GLOBULIN RATIO 0.9 (1.0-1.7); CALCIUM 8.4 mg/dL (8.5-10.1); CREATININE 0.7 mg/dL (0.6-1.0); GFR 120.6; TOTAL BILIRUBIN 0.4 mg/dL (0.2-1.0); TOTAL PROTEIN 6.5 g/dL (6.4-8.2); URIC ACID 6.8 mg/dL (2.6-6.0)
[2016-10-13 04:34] LABS: POTASSIUM 2.8 mmol/L (3.5-5.1)
[2016-10-13] MEDS ORDERED: LABETALOL HCL 200 MG TABLET PO SCH (09:00)
== END 2016-10-13 07:51 | disposition left against medical advice (07) ==
LOC: 3 SO LND 01:52
PROVIDERS: ADMIT Obstetrics & Gynecology; ATTEND Obstetrics & Gynecology
DX: O26.892 Other specified pregnancy related conditions, second trimester (principal); M54.9 Dorsalgia, unspecified; R51 Headache; Z3A.21 21 weeks gestation of pregnancy
CPT/HCPCS: 36415; 80053; 80307; 81001; 83615; 84550; 85025; 87086; 96361; 96374; G0378; G0379; J3490; J7120; G0479

== ENCOUNTER 2016-12-01 11:18 | Observation (INO) | payer SELFPAY ==
[2016-12-01 12:27] LABS: BARBITURATES NEG (NEG); BENZODIAZEPINES NEG (NEG); CANNABINOIDS NEG (NEG); COCAINE POS (NEG); METHADONE NEG (NEG); OPIATES NEG (NEG); PHENCYCLIDINE POS (NEG)
[2016-12-01 12:39] LABS: BILIRUBIN,URINE NEGATIVE (NEG); GLUCOSE,URINE NEGATIVE (NEG); NITRITE,URINE POSITIVE (NEG); PROTEIN,URINE 30 mg/dL (NEG-TRACE)
[2016-12-01 12:46] LABS: BACTERIA,URINE MANY /HPF (0-FEW); RBC,URINE OCC /HPF (0-2)
[2016-12-01 12:47] LABS: SQUAMOUS EPITHELIAL CELL,UR MOD /LPF
[2016-12-01] MEDS ORDERED: hydrALAZINE 20 MG/ML VIAL. IVP ONE (14:00)
[2016-12-01 14:27] LABS: HEMATOCRIT 34.1 % (36.0-47.0); HEMOGLOBIN 11.7 g/dL (12.0-15.5); RED BLOOD COUNT 3.87 x10^6/uL (3.50-5.40); RED CELL DISTRIBUTION WIDTH 13.4 % (11.5-14.5); WHITE BLOOD COUNT 8.4 x10^3/uL (4.0-11.0)
[2016-12-01 14:51] LABS: CALCIUM 9.1 mg/dL (8.5-10.1); CREATININE 0.6 mg/dL (0.6-1.0); POTASSIUM 3.2 mmol/L (3.5-5.1)
[2016-12-01] MEDS ORDERED: LABETALOL 20 MG/4 ML DISP.SYRIN. ONE (14:51)
[2016-12-01 14:57] VITALS: BP 185/104
[2016-12-01 14:57] LABS: ALBUMIN 3.1 g/dL (3.4-5.0); ALBUMIN/GLOBULIN RATIO 0.8 (1.0-1.7); TOTAL BILIRUBIN 0.2 mg/dL (0.2-1.0); TOTAL PROTEIN 6.9 g/dL (6.4-8.2); URIC ACID 3.9 mg/dL (2.6-6.0)
[2016-12-01] MEDS ORDERED: LABETALOL 20 MG/4 ML DISP.SYRIN. IVP ONE (15:00)
[2016-12-02 07:30] LABS: RPR REFLEX Non Reactive (Non Reactive)
== END 2016-12-01 15:20 | disposition left against medical advice (07) ==
LOC: 3 SO LND 11:18
PROVIDERS: ADMIT Specialist; ATTEND Specialist
DX: O36.8130 Decreased fetal movements, third trimester, not applicable or unspecified (principal); O99.323 Drug use complicating pregnancy, third trimester; F14.90 Cocaine use, unspecified, uncomplicated; O10.913 Unspecified pre-existing hypertension complicating pregnancy, third trimester; O99.283 Endocrine, nutritional and metabolic diseases complicating pregnancy, third trimester; E87.6 Hypokalemia; Z3A.28 28 weeks gestation of pregnancy
CPT/HCPCS: 36415; 80053; 80307; 81001; 84550; 85027; 86593; 86762; 86850; 86900; 86901; 87086; 87340; 87341; 96374; 96375; G0378; G0379; J0360; J3490; G0479

== ENCOUNTER 2018-08-26 14:23 | Emergency (ER) | payer SELFPAY ==
[~2018-08-26] VITALS: Ht 175.3 cm; Wt 90.7 kg
[~2018-08-26 14:23] MED LIST changes: -AMLO10TA2 PO; +AMLO10TA8 PO; -HYDR12.53 PO; +HYDR12.575 PO; -LABE100T3 PO; +LABE100T5 PO
[2018-08-26 14:35] VITALS: BP 207/140
--- NOTE | 2018-08-26 14:41 | PHYS DOC ---
Past Medical History Past Medical History: Hypertension, Migraines Additional Past Medical Histor: Previous "cutting" that pt reports no treatment for; preeclampsia Past Surgical History: Appendectomy Alcohol Use: Occasionally Drug Use: Cocaine, Marijuana, Phencyclidine, Other Adult General Chief Complaint Chief Complaint: KNEE INJURY HPI HPI Patient is a 28 year old female who presents with right knee pain this morning. The patient states that she got drunk last night and doesn't remember what she did; woke up this morning and her knee was hurting. Rates her pain as 10 out of 10 has not tried any interventions prior to arrival. Review of Systems Review of Systems Constitutional: Denies fever or chills [] Eyes: Denies change in visual acuity, redness, or eye pain [] HENT: Denies nasal congestion or sore throat [] Respiratory: Denies cough or shortness of breath [] Cardiovascular: No additional information not addressed in HPI [] GI: Denies abdominal pain, nausea, vomiting, bloody stools or diarrhea [] : Denies dysuria or hematuria [] Musculoskeletal: Denies back pain but reports R knee pain. Integument: Denies rash or skin lesions [] Neurologic: Denies headache, focal weakness or sensory changes [] Endocrine: Denies polyuria or polydipsia [] Complete systems were reviewed and found to be within normal limits, except as documented in this note. Current Medications Current Medications Current Medications Medications (Trade) Dose Ordered Sig/Gladys Start Time Stop Time Status Last Admin Dose Admin Ketorolac Tromethamine (Toradol 30mg Vial) 30 mg 1X ONCE 08/26/18 14:45 08/26/18 14:46 DC 08/26/18 15:02 30 MG Allergies Allergies Allergies Coded Allergies Type Severity Reaction Last Updated Verified Latex, Natural Rubber Allergy Severe Swelling 09/27/16 Yes Pork/Porcine Containing Products Allergy Severe 09/27/16 Yes Physical Exam Physical Exam Constitutional: Well developed, well nourished, no acute distress, non-toxic appearance. [] HENT: Normocephalic, atraumatic, bilateral external ears normal, oropharynx moist, no oral exudates, nose normal. [] Eyes: PERRLA, EOMI, conjunctiva normal, no discharge. [] Neck: Normal range of motion, no tenderness, supple, no stridor. [] Cardiovascular:Heart rate regular rhythm, no murmur [] Lungs & Thorax: Bilateral breath sounds clear to auscultation [] Abdomen: Bowel sounds normal, soft, no tenderness, no masses, no pulsatile masses. [] Skin: Warm, dry, no erythema, no rash. [] Back: No tenderness, no CVA tenderness. [] Extremities: Tenderness to R knee, with diffuse knee swelling. Neurologic: Alert and oriented X 3, normal motor function, normal sensory function, no focal deficits noted. [] Psychologic: Affect normal, judgement normal, mood normal. [] Current Patient Data Vital Signs Vital Signs Date Time Temp Pulse Resp B/P (MAP) Pulse Ox O2 Delivery O2 Flow Rate FiO2 08/26/18 14:35 98.0 84 16 207/140 162 100 Room Air 98.0 EKG EKG [] Radiology/Procedures Radiology/Procedures [][facility] [address] [place] [address] IMAGING REPORT Signed PATIENT: ANJALI TERRY ACCOUNT: [id number] : 1990 LOCATION: ER AGE: 28 SEX: F EXAM STATUS: REG ER ORD. PHYSICIAN: SANTOSH SWARTZ APRN REASON: swelling, pain PROCEDURE: KNEE RIGHT 3V Exam performed: 3 views right knee. Clinical indication: Right knee pain and swelling Date of Service: 08/26/2018 Comparison: None available 3 views [right] knee findings: Normal alignment of the medial and lateral tibiofemoral joint is preserved. The patellofemoral joint appears unremarkable. The articular margins are smooth. There is no fracture or dislocation. There is a moderate suprapatellar joint effusion with suspected body. Impression: 1. Moderate suprapatellar joint effusion with suspected body. 2. No acute fracture. Electronically signed by: Jerilyn Hancock MD (08/26/2018 3:17 PM) [facility] DICTATED and SIGNED BY: JERILYN HANCOCK MD DATE: 08/26/18 4754 Course & Med Decision Making Course & Med Decision Making Pertinent Labs and Imaging studies reviewed. (See chart for details) Unknown mechanism of injury. Will get knee x-ray and give Toradol. No acute fracture. Will d/c and place in kayode wrap. Dragon Disclaimer Dragon Disclaimer This electronic medical record was generated, in whole or in part, using a voice recognition dictation system. Departure Departure Impression: Primary Impression: Knee pain Disposition: HOME, SELF-CARE Condition: STABLE Referrals: NO PCP (PCP) Patient Instructions: Knee Wraps (Elastic Bandage) and RICE Additional Instructions: Thank you for visiting [facility]. We appreciate you trusting us with your care. If any additional problems come up don't hesitate to return to visit us. Please follow up with your primary care provider so they can plan additional care if needed and know about the problem that you had. If symptoms worsen come back to the Emergency Department. Any concerning symptoms that start such as chest pain, shortness of air, weakness or numbness on one side of the body, running high fevers or any other concerning symptoms return to the ER. SANTOSH SWARTZ APRN Aug 26, 2018 14:41
[2018-08-26] MEDS ORDERED: KETOROLAC 30 MG/ML VIAL. IM ONE (14:45)
--- NOTE | 2018-08-26 15:20 | RAD ---
Exam performed: 3 views right knee. Clinical indication: Right knee pain and swelling Date of Service: 08/26/2018 Comparison: None available 3 views [right] knee findings: Normal alignment of the medial and lateral tibiofemoral joint is preserved. The patellofemoral joint appears unremarkable. The articular margins are smooth. There is no fracture or dislocation. There is a moderate suprapatellar joint effusion with suspected body. Impression: 1. Moderate suprapatellar joint effusion with suspected body. 2. No acute fracture. Electronically signed by: Jerilyn Hancock MD (08/26/2018 3:17 PM) [facility]
== END 2018-08-26 15:34 | disposition home or self-care (01) ==
LOC: ER 14:23
DX: M25.561 Pain in right knee (principal); I10 Essential (primary) hypertension; G43.909 Migraine, unspecified, not intractable, without status migrainosus; Z90.89 Acquired absence of other organs; Z91.040 Latex allergy status; Z91.018 Allergy to other foods
CPT/HCPCS: 73562; 96372; 99284; J1885